=== PATIENT | female | born 1960 | race Caucasian/White ===

== ENCOUNTER 2023-06-29 14:41 | Emergency (ER) | payer OTHER, SELFPAY ==
[2023-06-29 14:50] VITALS: BP 117/81
[2023-06-29 16:10] VITALS: BP 128/78; BMI 25.8
--- NOTE | 2023-06-29 16:29 | EDRN ---
Pt states she has had sciatica for awhile and finished her prednisone script 2 weeks ago. Pain is more severe. Pt is taking 2 aleve in am and 1 at night. Pain is in L lower back radiating into L buttocks then down L lateral leg to L knee.
[2023-06-29 17:45] VITALS: BP 134/76
[2023-06-29] MEDS: NORCO 5/325 1 TABLET PO (17:45)
[2023-06-29] MEDS: TORADOL 15 MG IM (17:45)
--- NOTE | 2023-06-29 17:48 | ED.GENMED ---
History of Present Illness
General
Chief Complaint: Back Pain
Source: patient
Exam Limitations: none
Time Seen by Provider: 06/29/23 16:20
Nursing documentation reviewed up to this point in time: agreed with
Travel History
Have you had any contact with someone who has COVID-19?: No
Do you have any symptoms of coronavirus? Fever > 100 degrees, chills, cough, shortness of breath, sore throat, loss of taste or smell, muscle aches, or headache?: No
History of Present Illness
History of Present Illness:
Patient is a 62-year-old female with history of hyperlipidemia, hypothyroidism, GERD, pancreatic enzyme insufficiency presents for left-sided hip and back pain radiating into her left thigh, worse with changing position and weightbearing for the
last 2 weeks. She had no recent injury or heavy lifting. She had been on pancreatic enzymes which she was not tolerating well because of feeling very dehydrated and having a dry mouth etc. She stopped them about 2 weeks ago when this back pain
started. She is not sure if it is related. Patient saw her family doctor who thought she had sciatica and gave her methylprednisolone 4 mg tablets and told her to take 6 tabs on day [address] down to 1 tablet by decreasing 1 tablet a day.
Patient did that and had relief during while being on the prednisone but then immediately stopping got pain.
She says the pain is worse with weightbearing and feels like she is unable to weight-bear. She can put pressure on it but it hurts so she is limping. She has not had any weakness or numbness or tingling in the leg and no incontinence or fever.
She has no urinary tract infection symptoms.
She also has not had a bowel movement in the last 5 days and says that this is probably because of the pancreatic enzymes that she stopped. Patient has not tried anything for constipation. She has no abdominal distention or nausea or vomiting.
Past History
Past History
ED Past Medical History: GERD, Psychiatric and Other (Pancreatic enzyme insufficiency)
ED Past Surgical History: Other (Deviated septum repair)
Social History
Tobacco: Non-smoker
Alcohol: Occasional
Drug: None
Personal:
Living: with family
Review of Systems
Review of Systems
Allergies reviewed?: Yes
All Other Systems: Not applicable
Phy Exam
Physical Exam
Physical Exam:
GENERAL: Alert ,anxious,
EYE: pupils equal and reactive
NECK: Supple
ENT: o/p clr, mmm.
CARDIAC: mildly tachycardic 110s; no murmur .no edema
LUNGS: Clear breath sounds bilaterally, no acute respiratory distress, no wheezes/rales/rhonchi
ABDOMEN: Soft, without focal tenderness, no r/g, no cvat, normal bowel sounds
NEUROLOGICAL: Alert and oriented, no focal neuro deficits, 5/5 strength intact, senation intact grossly
SKIN: Warm and dry, skin intact.
MUSCULOSKELETAL: tender left SI joint, mild tende rleft paraspinal lumbar region
pos straigth leg raise into thigh at 30 degrees
no weakness/numbness
neg straight leg raise on the right
ambulates with a lump
some mild pain with hip internal rotation and flexion;
PSYCH: Normal and appropriate interaction.
Course
Orders/Labs/Results
Orders:
Orders
06/29/23 17:05
Hydrocodone 5/APAP 325 [[place] 5/325] 1 tablet PO NOW STA
Ketorolac [Toradol] 15 mg IM NOW STA
Abdomen Xray - 1 View [CR Abdomen - 1 View] Urgent
Comment:
Reason For Exam: constipation
Hip, Left 2-3 Views [CR Hip - LT w/wo Pel 2-3 Vw*] Urgent
Comment:
Reason For Exam: left posterior hip pain
Include a pelvis x-ray?: Yes
Lumbar Spine Complete, 4 View [CR Lumbar Spine Comp Min 4 Vw*] Urgent
Comment:
Reason For Exam: low back pain
06/29/23 18:04
Urinalysis Reflex To Culture Urgent
Date Specimen was Collected: 06/29/23
Time Specimen was Collected: 18:02
Urine Microscopic Reflex Cult Urgent
Urine Culture Urgent
NASIR Source: U
Specimen Description:
Date Specimen was Collected: 06/29/23
Time Specimen was Collected: 18:02
06/29/23 18:19
Prednisone [Deltasone] 50 mg PO NOW STA
Abnormal Lab Results
06/29/23
18:04
Leukocyte Esterase Rfl 2+ A
(Negative)
Urine WBC (Reflex) 11-15 A /HPF
(0-5)
Urine Bacteria (Reflex) Few A
(Negative)
Vital Signs
Initial and Last Documented VS:
Initial Vital Signs
Temp Pulse Resp BP Pulse Ox
99.3 F 118 18 117/81 96
06/29/23 14:50 06/29/23 14:50 06/29/23 14:50 06/29/23 14:50 06/29/23 14:50
Last Documented Vital Signs
Temp Pulse Resp BP Pulse Ox
99.3 F 82 16 101/57 94
06/29/23 14:50 06/29/23 19:50 06/29/23 19:50 06/29/23 19:50 06/29/23 19:50
MDM/Problems Addressed
Differential Diagnosis Includes:
sciatica lumbar radiculopathy, bursitits
MDM/Problems Addressed:
62 y/o F with left posterior hip/lower back pain without trauma x 2 weeks
radiation of pain into left thigh
no weakness/numbness/incontinence/fever
no urinary sypmtoms
pt has pain with weight bearing and has a limp
she has a slightly pos sraight leg raise on left with 30 degrees
she has mild SI joitn tendenress
i think her symptoms are most consistent with sciatica but could be lumbar raidculopathy
regardless her oral steroid taper was a low dose
she has h/o GERD but no PUD
will try a higher round of steroids
imaging ordered for screening purposes
and UA
if negative, d/c with prednisone and small course vicodin
she does have some constipation
so will prescribe stool osftener
*Critical Care Note
Total Time (30-74mins, 75-104mins- exclusive of procedures): Not Applicable
ED Attending Note
-
Portions of this chart may have been created with voice recognition software.� Occasional wrong word or��sound alike� substitutions may have occurred due to the inherent limitations of voice recognition software.
Discharge Plan
Departure
Patient Disposition: Home (Routine Discharge)
Date of Disposition: 06/29/23
Time of Disposition: 19:31
Patient with high blood pressure during this ER visit?: No
Condition: Fair
Covid-19: Not Applicable
Discharge Problem:
Sciatica, Constipation
Instructions: Sciatica (DC)
Prescriptions:
New
hydrocodone-acetaminophen 5-325 mg tablet
1 tab PO BID PRN (Reason: Pain) Qty: 10 0RF
docusate sodium [Colace] 100 mg capsule
100 mg PO BID Qty: 20 0RF
prednisone 20 mg tablet
20 mg PO BID 5 Days Qty: 10 0RF
No Action
levothyroxine [Synthroid] 88 MCG tablet
100 mcg PO DAILY
atorvastatin 10 MG tablet
20 mg PO DAILY
alprazolam 1 MG tablet
1 mg PO HSPRN PRN (Reason: anxiety)
omeprazole 40 MG capsule,delayed release(DR/EC)
40 mg PO DAILY
cevimeline 30 MG capsule
30 mg PO TID
pramipexole 0.125 MG tablet
0.125 mg PO DAILY
pramipexole 0.25 MG tablet
0.25 mg PO HS
montelukast 10 MG tablet
10 mg PO DAILY
mometasone 1 APPLIC cream
1 applic topical BID
bupropion HCl 150 MG tablet extended release 24 hr
150 mg PO DAILY
vilazodone [Viibryd] 40 MG tablet
40 mg PO DAILY
ondansetron HCl 4 mg tablet
4 mg PO Q8H PRN (Reason: nausea and vomiting) 5 Days Qty: 15 0RF
Referrals:
Sherley Vazquez PA-C [Family Provider] - Follow up in 2-3 days
Tuan Aguilera MD [Active] - Follow up in 5-7 days
Activity Restrictions/Additional Instructions:
YOUR BACK PAIN IS PROBABLY FROM SCIATICA
USE PRENDISONE 20 MG TWICE A DAY FOR 5 DAYS STARTING TOMORROW
USE TYLENOL 2 TIMES A DAY (2 REGULAR STRENGTH TABS) NEEDED FOR PAIN
FOR SEVERE PAIN YOU CAN USE VICODIN 1 TAB 3 TIMES A DAY FOR SEVERE PAIN NEEDED. THIS CAN LEAD TO CONSTIPATION, USE COLACE TWICE A DAY WHILE ON THIS MEDICATION
FOR YOUR CONSTIPATION YOU CAN TAKE A DOSE OF MIRALAX ONCE A DAY TO HELP YOU POOP
if you do this for 2 days and do not poop, you can use miralax twice a day for a few days.
YOUR XRAY SHOWS A LOT OF STOOL IN YOUR COLON.
RETURN FOR: SEVERE PAIN, LEG WEAKNESS/NUMBNESS, INCONTINENCE, ABDOMINAL PAIN, VOMITING OR ANY CONCERNS.
Interventions
Interventions:
*Risk Screen - Suicide Last Done: 06/29/23 16:10
*General Assessment Last Done: 06/29/23 16:10
*Neglect/Abuse Screening Last Done: 06/29/23 16:10
ED- Fall Risk Assessment Last Done: 06/29/23 16:10
*ED COVID-19 Vaccine History Last Done: 06/29/23 14:50
*Nursing Disposition Last Done: 06/29/23 19:50
ED-Musculoskeletal Assessment Last Done: 06/29/23 16:10
Discharge Date and Time
Discharge Date/Time: 06/29/23 19:50
--- NOTE | 2023-06-29 17:54 | EDRN ---
Pt limped to BR to attempt urine spec at this time.
--- NOTE | 2023-06-29 18:13 | EDRN ---
Urine spec obtained and sent.
[2023-06-29] MEDS: DELTASONE 50 MG PO (18:49)
[2023-06-29 19:00] LABS: Urine Albumin Trace (Neg - Trace); Urine Bilirubin Negative (Negative); Urine Character Slightly Cloudy (Clear); Urine Color Yellow; Urine Glucose Negative (Negative); Urine Ketone Negative (Negative); Urine Leukocyte 2+ (Negative); Urine Nitrite Negative (Negative); Urine Occult Blood Negative (Negative); Urine Urobilinogen Negative (Neg - 1+)
[2023-06-29 19:08] LABS: Urine Squamous Cell >30 /LPF (Few)
[2023-06-29 19:10] LABS: Urine Amorphous Seen; Urine Bacteria Few (Negative); Urine Red Blood Cell None Seen /HPF (0-2)
[2023-06-29 19:14] LABS: Urine Calcium Oxalate Crystals Present
[2023-06-29 19:50] VITALS: BP 101/57
== END 2023-06-29 19:50 | disposition home or self-care (01) ==
LOC: EMR 14:41
PROVIDERS: Physician Assistant; EMERGENCY PHYSICIAN Emergency Medicine; FAMILY PHYSICIAN Physician Assistant Medical
DX: K59.00 Constipation, unspecified (principal); M54.30 Sciatica, unspecified side; K21.9 Gastro-esophageal reflux disease without esophagitis; E03.9 Hypothyroidism, unspecified; E78.5 Hyperlipidemia, unspecified
CPT/HCPCS: 99283; 96372; 72110; 73502; 74018; 81003; 81015; 87086

== ENCOUNTER → 2023-07-12 07:00 | Outpatient (REF) | payer OTHER, SELFPAY | LOC: MRI 07:00 | PROVIDERS: ATTENDING PHYSICIAN Physician Assistant Surgical; FAMILY PHYSICIAN Physician Assistant Medical | DX: M54.16 Radiculopathy, lumbar region (principal) | CPT/HCPCS: 72148 ==

== ENCOUNTER → 2023-07-17 07:34 | Outpatient (REF) | payer OTHER, SELFPAY | LOC: RAD 07:34 | PROVIDERS: ATTENDING PHYSICIAN Internal Medicine; FAMILY PHYSICIAN Physician Assistant Medical | DX: R11.2 Nausea with vomiting, unspecified (principal) | CPT/HCPCS: 78264; A9541 ==

== ENCOUNTER → 2023-08-13 11:14 | Outpatient (REF) | payer OTHER, SELFPAY | LOC: MRI 3T 11:14 | PROVIDERS: ATTENDING PHYSICIAN Internal Medicine; FAMILY PHYSICIAN Physician Assistant Medical | DX: R11.0 Nausea (principal); K31.84 Gastroparesis; Z87.19 Personal history of other diseases of the digestive system; Z83.79 Family history of other diseases of the digestive system | CPT/HCPCS: 72197; 74183; A9575 ==

== ENCOUNTER 2023-09-16 06:12 | Inpatient (IN) | payer OTHER, SELFPAY ==
--- NOTE | 2023-09-09 09:07 | CM ---
Patient is scheduled for lumbar spine surgery on 09/16/23. Spoke with patient prior to surgery via telephone. Introduced role of the Orthopedic Navigator. Patient reports that she lives with her in a two story home. There is one step to enter
and a flight of steps to the second floor. There is a powder room on the first floor. She currently functions independently. She has a cane. She has never had VN services. PCP is Sherley Vazquez.
Discussed orthopedic program, post surgical plans and tentative plan for patient to return home when directed by surgeon. Patient is in agreement with tentative plan and will have support from her when she goes home.
Plan: Orthopedic Navigator will remain available to assist with the care of patient and will reassess discharge needs after surgery.
[2023-09-10 13:51] VITALS: BMI 25.2
[2023-09-10 14:11] LABS: Hematocrit 40.1 % (37.0-47.0); Hemoglobin 13.2 g/dL (12.0-16.0); Mean Corp Hgb Conc. 32.9 g/dL (33.0-37.0); Mean Corpuscular Hgb 28.6 pg (27.0-31.0); Mean Platelet Volume 9.8 fL (7.4-10.4); Platelet Count 436 10^3/uL (130-400); Red Blood Cell Count 4.61 10^6/uL (4.20-5.40); Red Cell Dist. Width 13.2 % (11.5-14.5); White Blood Cell Count 6.9 10^3/uL (4.8-10.8)
[2023-09-10 14:23] LABS: INR 0.99
[2023-09-10 15:03] LABS: ALT (SGPT) 16 U/L (0-35); AST (SGOT) 19 U/L (14-36); Alkaline Phosphatase 117 U/L (38-126); Blood Urea Nitrogen 12 mg/dl (7-17); Calcium 9.9 mg/dl (8.4-10.2); Carbon Dioxide 29 mmol/L (22-30); Chloride 102 mmol/L (98-107); Estimated Creatinine Clearance 59 ml/min; Glucose 81 mg/dl (70-99); Sodium 142 mmol/L (135-145); Total Bilirubin 0.4 mg/dl (0.2-1.3); Total Protein 6.6 g/dl (6.3-8.2); eGFR > 60.00
[2023-09-10 15:08] LABS: Potassium 4.2 mmol/L (3.5-5.1)
[2023-09-10 16:41] VITALS: BMI 25.2
[2023-09-16] VITALS (20 sets, daily range): BP systolic 82–118; BP diastolic 43–76
[2023-09-16] MEDS: SKELAXIN 800 MG PO (06:33)
[2023-09-16] MEDS: CELEBREX 200 MG PO (06:33)
[2023-09-16] MEDS: TYLENOL 1000 MG PO ×2 (06:34→17:01)
[2023-09-16] MEDS: NORMOSOL-R 1000 IV ×2 (06:55→15:07)
[2023-09-16 07:30] LABS: Urine Albumin Negative (Neg - Trace); Urine Bilirubin Negative (Negative); Urine Character Clear (Clear); Urine Color Yellow; Urine Glucose Negative (Negative); Urine Ketone Negative (Negative); Urine Leukocyte Trace (Negative); Urine Nitrite Negative (Negative); Urine Occult Blood Negative (Negative); Urine Urobilinogen 1+ (Neg - 1+)
[2023-09-16 07:47] LABS: Urine Bacteria Few (Negative); Urine Mucus Few; Urine Red Blood Cell 0-2 /HPF (0-2)
--- NOTE | 2023-09-16 13:05 | W.PN.UPDATE ---
Update Note
Progress Note Update
Orthopedic Surgery Post-op Note:
Patient is s/p L4-5 TLIF with decompression. Waking up in PACU, following commands. Moving feet. Sensation intact in BL LE. Drain in place (sutured in). She may get up as tolerated with assistance. PT/OT. DVT ppx with SCDs (no anticoagulation for 24
hrs post-op). Pain control. Zuniga to be removed within 24 hrs post-op.
[2023-09-16] MEDS: DILAUDID 0.5 MG IV (13:15)
[2023-09-16] MEDS: DILAUDID 0.25 MG IV ×2 (13:31→14:06)
--- NOTE | 2023-09-16 15:22 | PTCARENOTE ---
Pt arrived to [facility] [address] from PACU s/p L4-L5 lumbar fusion. Pt aquacel dressing C/D/I, hemovac drain in place draining sanguineous. Pt states mild pain. Pt does not have her back brace with her-she called her to bring to the hospital. Pt
oriented to call [place] and room, bed locked and in lowest position, call [place] within reach.
[2023-09-16] MEDS: ULTRAM 50 MG PO ×2 (15:49→19:32)
[2023-09-16] MEDS: ROXICODONE 10 MG PO (16:59)
[2023-09-16] MEDS: BENTYL PO ×2 (17:00→21:44)
[2023-09-16] MEDS: SYNTHROID 100 MCG PO (17:00)
[2023-09-16] MEDS: WELLBUTRIN XL (24 hour extended release) 150 MG PO (17:00)
[2023-09-16] MEDS: LIPITOR 20 MG PO (17:00)
[2023-09-16] MEDS: ANCEF 5 IV (17:01)
[2023-09-16] MEDS: NORMOSOL-R IV (18:08)
[2023-09-16] MEDS: SYMBICORT 80/4.5 MCG INHALER 2 PUFF INH (20:51)
[2023-09-16] MEDS: SEROQUEL 100 MG PO (21:28)
[2023-09-16] MEDS: MIRAPEX 0.5 MG PO (21:28)
[2023-09-16] MEDS: SINGULAIR 10 MG PO (21:28)
[2023-09-16] MEDS: PROTONIX 40 MG PO (21:28)
[2023-09-16] MEDS: DILAUDID 1 MG IV (21:29)
[2023-09-16] MEDS: ZADITOR 1 DROP OPHTH (21:34)
--- NOTE | 2023-09-16 21:41 | W.PN.ORTHO ---
Today's Communication / Plan
-
Monitor voiding.
Pull hemovac drain.
D/c later today if remaining clinically stable.
Assessment
.
Distal Motor Intact: Yes
Dressing:
Clean, dry and intact.
Assessment:
Lumbar stenosis with neurogenic claudication s/p L4-5 TLIF with decompression w/ Dr Robin 09/16/23
DVT prophylaxis - b/l SCDs/TEDs
+ Hemovac drain - output minimal overnight - d/c drain this AM
+ Langston - langston removed 0600 POD 1 w/ current voiding trial ongoing
- Will order Flomax prn
HTN - diet controlled - BPs overall stable
Asthma and SERA, noncompliant with device - O2 stable
- Resumed inhaler, montelukast
GERD - resumed PPI therapy
HLD
Chronic JUDGE
Pulmonary nodules
RLS
Hypothyroidism
Depression
Anxiety
Plan
.
Surgery / Date: L4-5 TLIF with decompression w/ Dr Robin 09/16/23
DVT Prophylaxis: Other (b/l SCDs/TEDs)
Activity:
Out of bed.
PT/OT
Discharge Plan: Home
Subjective
.
.:
Patient resting comfortably in her chair this AM.
Low back pain minimal w/ addition of IV Dilaudid overnight - will switch to oral Dilaudid upon d/c.
Denies any significant new complaints.
AM labs stable. Did well w/ both PT and OT.
Eager for potential d/c today.
Vital Signs and Labs
.
Vital Signs and Labs:
Lab Results
09/10/23 13:41
09/10/23 13:41
Temp Pulse Resp BP Pulse Ox
97.8 F 97 16 118/55 94
09/16/23 19:10 09/16/23 21:02 09/16/23 21:02 09/16/23 19:10 09/16/23 21:02
PT 13.0 Sec (11.4-14.6) 09/10/23 13:41
INR 0.99 09/10/23 13:41
Physical Exam
-
HEENT: No pallor, cyanosis, or jaundice. Throat clear.
NECK: Supple. No JVD.
RESPIRATORY: Lungs clear to auscultation.
CVS: S1, S2 normal. RRR.
ABDOMEN: Soft, non-tender. No distension.
EXTREMITIES: Strength equal, no calf pain with palpation/dorsiflexion. Calves soft.
MUSIC LIBRARY ASSISTANT: AOx3. No focal deficits. dialysis biomed technician grossly intact
--- NOTE | 2023-09-16 23:45 | OR.RPT ---
Operative Report
Operative Report
Orthopedic Surgery Operative Report
Date of Surgery: 09/16/23
PREOPERATIVE DIAGNOSES:
1. Lumbar spinal stenosis with radiculopathy, L4-L5
2. Lumbar spondylolisthesis, L4-L5
3. Lumbar back pain
POSTOPERATIVE DIAGNOSES:
1. Lumbar spinal stenosis with radiculopathy, L4-L5
2. Lumbar spondylolisthesis, L4-L5
3. Lumbar back pain
PROCEDURE PERFORMED:
1. L4-L5 transforaminal lumbar interbody fusion, L4-5 posterolateral fusion
2. L4-L5 posterior instrumentation
3. Placement of interbody cage at L4-L5
4. Use of autograft
5. Use of allograft
SURGEON: Angel Robin D.O.
PICKLING TANK OPERATOR: KHOI Shah, who helped with patient and limb positioning and retraction
ANESTHESIA: General endotracheal
COMPLICATIONS: None
ESTIMATED BLOOD LOSS: 100 cc
DRAINS: Hemovac
SPECIMEN: None
IMPLANTS:
All Globus implants
L4 screws- 5.5 x 45 (x2)
L5 screws- 5.5 x 40 (x2)
L4-L5 cage- 10 x 26, 9-16 expandable cage (sable)
Bilateral titanium rods
INDICATION FOR SURGERY: This patient has an ongoing history of low back pain and left lower extremity radiculopathy. Evaluation shows that she has the aforementioned diagnoses. She has failed extensive nonsurgical treatment. She has elected to
undergo the aforementioned surgical procedures. The risks, benefits, alternatives, and indications were discussed with the patient in detail. The risks include, but are not limited to bleeding requiring transfusion, infection, need for reoperation,
nerve or blood vessel damage, anesthetic risks, need for further surgery, continued pain, blood clots in the legs, heart attack, stroke, , dural tear, nerve root injury, graft migration, instrumentation failure, pseudoarthrosis, numbness,
weakness, paralysis. The patient understands the risks and elected to proceed. Informed consent was obtained preoperatively. The patient was optimized medically prior to surgery.
PROCEDURE IN DETAIL: The patient was identified in the preoperative holding area. The surgical site was appropriately marked. The patient was then brought to the operating room. General endotracheal anesthesia was achieved. The patient was
given routine preoperative intravenous antibiotics. The patient was turned to the prone position. Great care was taken to pad and protect all extremities and pressure points. The incision site was marked using fluoroscopy. The patient was prepped
and draped in the usual sterile manner. A preoperative surgical time-out was taken.
A standard midline approach to the lumbar spine was performed. The dissection was carried out to the spinal lamina. Dissection was then carried out laterally to expose the transverse processes of L4 and L5 bilaterally. The entry point for the
screws was identified. Bilateral L4 and L5 transverse processes were decorticated. Bilateral L4 and L5 pedicle screws were placed under fluoroscopic guidance as follows: The entry point for the first screw was identified anatomically. It was
entered using high-speed jarrod. A pedicle finder was carefully advanced. The position was confirmed on fluoroscopy. A ball-tipped probe was used to confirm the pathway. An appropriately sized tap was then used to tap the pedicle. A ball-tipped
probe reconfirmed the pathway. An appropriate size screw was then placed. The same procedure was performed for each screw. All screws had appropriate fixation. Fluoroscopy confirmed appropriate position of all instrumentation. Triggered spinal
cord monitoring EMG was also used to confirm appropriate position of all instrumentation.
We now proceeded with the decompression. Laminectomy was carried out. The hypertrophic ligamentum flavum was removed. A right partial facetectomy and a left complete facetectomy was carried out. The facet cysts were removed. Once the decompression
was completed, attention was turned to cage placement. The thecal sac and exiting nerve root were retracted to expose the disc space at L4-5 on the left. The disc space was then prepared under fluoroscopic guidance. The disc space was copiously
irrigated. Bone graft (autograft) was inserted into the disc space. A cage of adequate size was then inserted and expanded under fluoroscopic guidance. Additional flowable bone graft was then placed into the cage and disc space. Rods of appropriate
length were chosen and applied to the screws. Set screws were applied. Set screws were final tightened. The surgical site was copiously irrigated.
The posterolateral fusion from L4-L5 was performed next. Bone was decorticated posterolaterally and bone graft (autograft and allograft) was applied at this site (right L4-5 facet and bilateral intertransverse spaces).
The decompression site was reexamined and found to be widely patent. A deep drain was placed. The muscle was approximated using vicryl suture. Fascia was closed using #1 stratafix suture. Vancomycin powder was placed. The deep and superficial
subcutaneous tissues were closed using vicryl suture. Skin was approximated with monocryl suture. Dermabond was applied at the skin. Sterile dressing was applied. The drain was sutured in placed. The patient was turned to the supine position and
awoken from anesthesia. The patient tolerated the procedure well with no immediate complications.
Throughout the surgery, spinal cord monitoring including SSEPs and EMGs were used. All counts were correct at the end of the surgery.
Angel Robin D.O.
Orthopedic Surgery
[2023-09-17] MEDS: TYLENOL 1000 MG PO ×3 (00:28→12:05)
[2023-09-17] MEDS: ULTRAM 50 MG PO ×4 (00:28→12:05)
[2023-09-17] MEDS: ANCEF 5 IV (02:47)
[2023-09-17] MEDS: NORMOSOL-R 1000 IV (02:50)
[2023-09-17 03:20] VITALS: BP 98/50
[2023-09-17 05:08] LABS: Hematocrit 30.4 % (37.0-47.0)
[2023-09-17 05:09] LABS: Hemoglobin 10.4 g/dL (12.0-16.0)
[2023-09-17 05:25] LABS: Blood Urea Nitrogen 10 mg/dl (7-17); Calcium 8.9 mg/dl (8.4-10.2); Carbon Dioxide 31 mmol/L (22-30); Chloride 99 mmol/L (98-107); Estimated Creatinine Clearance 76 ml/min; Glucose 111 mg/dl (70-99); Potassium 4.2 mmol/L (3.5-5.1); Sodium 137 mmol/L (135-145); eGFR > 60.00
[2023-09-17] MEDS: DILAUDID 1 MG IV ×2 (05:31→11:18)
[2023-09-17] MEDS: SYNTHROID 100 MCG PO (06:20)
[2023-09-17 07:00] VITALS: BP 138/72
[2023-09-17] MEDS: BENTYL 10 MG PO (08:10)
[2023-09-17] MEDS: WELLBUTRIN XL (24 hour extended release) 150 MG PO (08:10)
--- NOTE | 2023-09-17 08:37 | CM ---
Addendum entered by Makenna Mckeon 09/17/23 10:59:
Patient did well in therapy. She has no concerns about going home. No discharge planning needs identified.
Original Note:
Reviewed chart and held rounds with PT, OT and RN. Patient had planned lumbar spine surgery with Dr. Robin on 09/15. Met with patient at bedside. Confirmed information previously obtained for assessment and discussed discharge plans. Patient
continues to plan to return home at discharge. She will have support from her when she goes home. Reviewed that she will work with PT/OT this morning and that discharge needs will depend on his functional status. However, no needs currently
identified.
Patient has a cane at home. Her obtained her brace yesterday form [facility].
Patient will use [facility] pharmacy for discharge prescriptions.
[2023-09-17] MEDS: SYMBICORT 80/4.5 MCG INHALER 2 PUFF INH (09:08)
[2023-09-17 09:47] VITALS: BP 125/84; BP 148/96; PULSE 109; O2SAT 98
[2023-09-17 10:13] VITALS: BP 140/89; PULSE 96; O2SAT 96
--- NOTE | 2023-09-17 10:47 | W.DS.TRANS ---
DC Summary - Chemist Assistant
-
Discharge Instructions:
Discharge Diagnosis/Procedures Lumbar stenosis with neurogenic claudication s/p
L4-5 TLIF with decompression w/ Dr Robin 09/15/
24
Diet Regular
Activity As tolerated,With Walker
Additional Activity No heavy lifting >10 lbs
Driving Restrictions Not until seen by your Dr
Bathing Restrictions OK to shower in 4 days.
Instructions:
Stand-Alone Forms: [facility] Lumbar Spine DC Instr
Changes to Home Medications: Yes
Discharge Medications:
DC Medications w/original date entered in [employer]
levothyroxine 88 mcg tablet (Synthroid) 100 mcg PO DAILY Thyroid 12/28/10
atorvastatin 10 mg tablet 20 mg PO DAILY High Cholesterol 10/30/20
bupropion HCl 150 mg 24 hr tablet, extended release 150 mg PO DAILY Depression 10/30/20
montelukast 10 mg tablet 10 mg PO HS Lung/Breathing Issues 10/30/20
omeprazole 40 mg capsule,delayed release 40 mg PO HS Gastrointestinal Issue 10/30/20
pramipexole 0.25 mg tablet 0.5 mg PO HS restless leg 10/30/20
vilazodone 40 mg tablet (Viibryd) 40 mg PO DAILY depression 10/30/20
dicyclomine 10 mg capsule 10 - 20 mg PO TID Gastrointestinal Issue 09/09/23
fluticasone furoate 100 mcg-vilanterol 25 mcg/dose inhalation powder (Breo Ellipta) 1 inh inhalation DAILY Lung/Breathing Issues 09/09/23
inulin 2 gram chewable tablet (Fiber Gummies) 4 g PO BID Supplement 09/09/23
multivitamin 1 tab PO DAILY Supplement 09/09/23
olopatadine 0.1 % eye drops 1 drp ophthalmic (eye) HS Eye Condition 09/09/23
quetiapine 50 mg tablet (Seroquel) 100 mg PO HS depression/anxiety 09/09/23
mupirocin 2 % topical ointment 1 applic topical BID infection prevention #1 tube 09/10/23
acetaminophen 500 mg tablet (Tylenol Extra Strength) 1,000 mg (2 x 500 mg) PO Q6H #30 tabs 09/17/23
alprazolam 1 mg tablet 1 mg PO HSPRN PRN anxiety #0 tabs 09/17/23
docusate sodium 100 mg capsule 100 mg PO BID #30 caps 09/17/23
hydromorphone 2 mg tablet 2 - 4 mg (1 - 2 x 2 mg) PO Q6H PRN moderate-severe pain #30 tabs 09/17/23
ondansetron HCl 4 mg tablet 4 mg PO Q6H PRN nausea and vomiting #30 tabs 09/17/23
sennosides 8.6 mg tablet (Senna Laxative) 17.2 mg (2 x 8.6 mg) PO BID #30 tabs 09/17/23
Home Medication Changes
acetaminophen 500 mg tablet (Tylenol Extra Strength) 1,000 mg (2 x 500 mg) PO Q6H #30 tabs 09/17/23
docusate sodium 100 mg capsule 100 mg PO BID #30 caps 09/17/23
hydromorphone 2 mg tablet 2 - 4 mg (1 - 2 x 2 mg) PO Q6H PRN moderate-severe pain #30 tabs 09/17/23
ondansetron HCl 4 mg tablet 4 mg PO Q6H PRN nausea and vomiting #30 tabs 09/17/23
sennosides 8.6 mg tablet (Senna Laxative) 17.2 mg (2 x 8.6 mg) PO BID #30 tabs 09/17/23
Pending Results: No
[2023-09-17 11:14] VITALS: BP 124/73
== END 2023-09-17 12:58 | disposition home or self-care (01) | DRG 460 ==
LOC: 2 SOUTH 06:12
PROVIDERS: Physician Assistant Medical; ADMITTING PHYSICIAN Orthopaedic Surgery; FAMILY PHYSICIAN Physician Assistant Medical
PROC: 0SG00AJ Fusion of Lumbar Vertebral Joint with Interbody Fusion Device, Posterior Approach, Anterior Column, Open Approach (ICD-10-PCS; 2023-09-16)
DX: M54.16 Radiculopathy, lumbar region (principal); M48.062 Spinal stenosis, lumbar region with neurogenic claudication; M43.16 Spondylolisthesis, lumbar region; I10 Essential (primary) hypertension; G47.33 Obstructive sleep apnea (adult) (pediatric); J45.909 Unspecified asthma, uncomplicated; K21.9 Gastro-esophageal reflux disease without esophagitis; E78.5 Hyperlipidemia, unspecified; E03.9 Hypothyroidism, unspecified; F32.A Depression, unspecified; F41.9 Anxiety disorder, unspecified; G25.81 Restless legs syndrome; Z91.199 Patient's noncompliance with other medical treatment and regimen due to unspecified reason
CPT/HCPCS: 36415; 72100; 76000; 80048; 80053; 81003; 81015; 85014; 85018; 85027; 85610; 87070; 93005; 94640; 97116; 97162; 97166; 97530; 97535

== ENCOUNTER 2023-10-23 14:19 | Outpatient (RCR) | payer OTHER, SELFPAY | END 2023-10-23 23:59 | disposition home or self-care (01) | LOC: RPT 14:19 | PROVIDERS: ATTENDING PHYSICIAN Orthopaedic Surgery; FAMILY PHYSICIAN Physician Assistant Medical | DX: Z47.89 Encounter for other orthopedic aftercare (principal); Z73.6 Limitation of activities due to disability; R26.2 Difficulty in walking, not elsewhere classified; M62.81 Muscle weakness (generalized) | CPT/HCPCS: 97110; 97112; 97162; 97530 ==

== ENCOUNTER 2023-11-16 13:48 | Emergency (ER) | payer OTHER, SELFPAY ==
[2023-11-16 13:52] VITALS: BP 147/91
--- NOTE | 2023-11-16 15:14 | ED.GENMED ---
Addendum entered and electronically signed by Bro Paulino DO 11/16/23 17:47:
Discussed with patient and spouse that the nodules are longer an issue than stated previously on pulmonary, I gave them a copy of the report to discuss with her PCP
Original Note:
History of Present Illness
General
Chief Complaint: Breathing Problem
Source: patient
Exam Limitations: none
Time Seen by Provider: 11/16/23 14:57
Nursing documentation reviewed up to this point in time: agreed with
Travel History
Have you had any contact with someone who has COVID-19?: No
Do you have any symptoms of coronavirus? Fever > 100 degrees, chills, cough, shortness of breath, sore throat, loss of taste or smell, muscle aches, or headache?: Yes
Symptoms:: SOB
History of Present Illness
History of Present Illness:
63-year-old female presents with sore throat loss of voice shortness of breath onset a week or so ago saw PCP given a Z-Talon, patient concerned that her heart rate went fast when she stood she has no chest pain, no wheezing, nondrinker non-smoker she
suffers from mental illness, thyroid, restless leg
Past History
Past History
ED Past Medical History: GERD, Psychiatric and Other (Pancreatic enzyme insufficiency)
ED Past Surgical History: Other (Deviated septum repair)
Social History
Tobacco: Non-smoker
Alcohol: Occasional
Drug: None
Personal:
Living: with family
Review of Systems
Review of Systems
All Other Systems: Not applicable
Constitutional: Denies fever or fatigue
EENT: Reports sore throat
Respiratory: Reports trouble breathing; Denies cough
Cardiac: Denies chest pain, diaphoresis or palpitations
ABD/GI: Reports no symptoms
: Reports no symptoms
Musculoskeletal: Reports no symptoms
Skin: Reports no symptoms
Neurological: Reports no symptoms
Endocrine: Reports no symptoms
Phy Exam
Physical Exam
Physical Exam:
Physical Exam
General: no apparent distress, not acutely ill
Neck: Posterior pharynx is clear voice is hoarse
Heart: Tachycardic 105 bpm
Lungs: no acute respiratory distress. clear bilaterally
Abdomen: Not tender
Neuro: alert and oriented. no focal neurological deficits
Skin: no rash
Psychiatric: well kept. interactive and cooperative
Extremities: no edema.
Scores
Heart Failure Risk
Heart Failure Risk Score: Not Applicable
Course
Orders/Labs/Results
Orders:
Orders
11/16/23 13:53
EKG [Electrocardiogram (*1)] Urgent
Reason for Study: Shortness of Breath
EKG- Treatment ONCE
CR Chest - 2 Views Urgent
Comment:
Reason For Exam: SOB
11/16/23 15:11
Cardiac Monitoring- Treatment ONCE
IV Insert/Care/Rem.- Treatment PRN
0.9% Sodium Chloride 1000 ml [Nss] 1,000 ml IV BOLUS
Dexamethasone Sod Phosphate [Decadron] 10 mg IV NOW STA
Ipratropium/Albuterol Sulfate [Duoneb] 3 ml INH R NOW STA
11/16/23 15:12
Soft Tissue, Neck [CR Soft Tissue Neck ] Urgent
Comment:
Reason For Exam: hoarse
11/16/23 15:30
Complete Blood Count/With Diff Urgent
Comprehensive Metabolic Panel Urgent
D-Dimer Urgent
11/16/23 16:03
CT Chest Pe Study Urgent
Comment:
Reason For Exam: tachy
Abnormal Lab Results
11/16/23
15:30
MCV 80.9 L fL
(81.0-99.0)
Eosinophils % 6.3 H %
(0-6)
D-Dimer 1.23 H ug/mlFEU
(0.00-0.50)
Glucose 102 H mg/dl
(70-99)
Alkaline Phosphatase 147 H U/L
(38-126)
11/16/23 15:30
11/16/23 15:30
Vital Signs
Initial and Last Documented VS:
Initial Vital Signs
Temp Pulse Resp BP Pulse Ox
98.8 F 110 17 147/91 96
11/16/23 13:52 11/16/23 13:52 11/16/23 13:52 11/16/23 13:52 11/16/23 13:52
Last Documented Vital Signs
Temp Pulse Resp BP Pulse Ox
98.8 F 89 17 147/91 96
11/16/23 13:52 11/16/23 16:26 11/16/23 13:52 11/16/23 13:52 11/16/23 16:26
MDM/Problems Addressed
Differential Diagnosis Includes:
Laryngitis pharyngitis URI doubt epiglottitis
MDM/Problems Addressed:
Shortness of breath, sore throat
Chronic conditions affecting care: Psychiatric illness
Acute Exacerbation and/or Progression of Chronic Illness: Psychiatric illness
*Radiology
Radiology exam reviewed: radiology read reviewed
*Pulse Oximetry
Patient hypoxic: no
*EKG
Interpreted by ED Provider?: Yes
Interpretation: normal
Comparison EKG: no comparison EKG present
Heart Rate: 78
Rate: normal
Rhythm: sinus
Ischemia: no ischemia
*Social Media Editor Interpretation
Rate: tachycardiac
Interpretation: abnormal
Heart Rate: 105
Rhythm: sinus
*Critical Care Note
Total Time (30-74mins, 75-104mins- exclusive of procedures): Not Applicable
Update Note
Update Note:
3:39 PM chest x-ray report noted EKG noted will check labs soft tissue lateral back, start on saline and some steroids
4:15 PM D-dimer noted patient feeling better after nebulizer heart rate actually decreased
5:[address] scan report reviewed, patient given a copy of the report
ED Attending Note
-
Portions of this chart may have been created with voice recognition software.� Occasional wrong word or��sound alike� substitutions may have occurred due to the inherent limitations of voice recognition software.
Discharge Plan
Departure
Patient Disposition: Home (Routine Discharge)
Date of Disposition: 11/16/23
Time of Disposition: 17:20
Patient with high blood pressure during this ER visit?: No
Condition: Good
Discharge Problem:
Laryngitis
Instructions: Laryngitis (DC)
Prescriptions:
New
albuterol sulfate 90 mcg/actuation HFA aerosol inhaler
2 puff inhalation Q6H PRN (Reason: shortness of breath or wheezing) Qty: 8.5 0RF
methylprednisolone [Medrol (Talon)] 4 mg tablets,dose pack
See Rx Instructions .ROUTE .COMPLEX Qty: 21 0RF
Rx Instructions:
for 6 days
No Action
levothyroxine [Synthroid] 88 MCG tablet
100 mcg PO DAILY
atorvastatin 10 MG tablet
20 mg PO DAILY
omeprazole 40 MG capsule,delayed release(DR/EC)
40 mg PO HS
pramipexole 0.25 MG tablet
0.5 mg PO HS
montelukast 10 MG tablet
10 mg PO HS
bupropion HCl 150 MG tablet extended release 24 hr
150 mg PO DAILY
vilazodone [Viibryd] 40 MG tablet
40 mg PO DAILY
multivitamin Tablet
1 tab PO DAILY
olopatadine 0.1 % Drops
1 drp OPHTHALMIC (EYE) HS
dicyclomine 10 mg Capsule
10 - 20 mg PO TID
Rx Instructions:
w/ food
quetiapine [Seroquel] 50 mg Tablet
100 mg PO HS
fluticasone furoate-vilanterol [Breo Ellipta] 100-25 mcg/dose Blister With Device
1 inh INHALATION DAILY
Fiber Gummies 2 gram Tablet,Chewable
4 g PO BID
mupirocin 2 % ointment
1 applic topical BID Qty: 1 0RF
docusate sodium 100 mg Capsule
100 mg PO BID Qty: 30 0RF
sennosides [Senna Laxative] 8.6 mg Tablet
17.2 mg PO BID Qty: 30 0RF
acetaminophen [Tylenol Extra Strength] 500 mg Tablet
1,000 mg PO Q6H Qty: 30 0RF
Rx Instructions:
DO NOT exceed >4000 mg daily.
hydromorphone 2 mg tablet
2 - 4 mg PO Q6H PRN (Reason: moderate-severe pain) Qty: 30 0RF
Rx Instructions:
1 tab for moderate pain, 2 if severe.
Dx lami
ondansetron HCl 4 mg tablet
4 mg PO Q6H PRN (Reason: nausea and vomiting) Qty: 30 0RF
alprazolam 1 MG tablet
1 mg PO HSPRN PRN (Reason: anxiety) Qty: 0 0RF
Rx Instructions:
Home medication.
Caution with Dilaudid - can cause drowsiness.
Take only as directed
Referrals:
Sherley Vazquez PA-C [Family Provider] - Next open appointment (Follow-up with your primary care provider, your CT scan shows some abnormalities and radiologist are recommending get a repeat CAT scan in a few months)
Activity Restrictions/Additional Instructions:
Follow-up with your primary care provider, radiologist are recommending you get a CT scan in a few months
Interventions
Interventions:
*General Assessment Last Done: 11/16/23 15:00
*Neglect/Abuse Screening Last Done: 11/16/23 15:00
ED- Fall Risk Assessment Last Done: 11/16/23 15:00
*ED COVID-19 Vaccine History Last Done: 11/16/23 15:00
ED- Cardiac Assessment Last Done: 11/16/23 15:00
ED- Pulmonary Assessment Last Done: 11/16/23 15:00
Discharge Date and Time
Print Language: YAKUT
[2023-11-16 15:30] VITALS: BMI 25.1
[2023-11-16] MEDS: NSS 1000 IV (15:31)
[2023-11-16] MEDS: DECADRON 10 MG IV (15:35)
[2023-11-16] MEDS: DUONEB 3 ML INH (15:35)
[2023-11-16 15:43] LABS: % Basophils 0.8 % (0-2); % Eosinophils 6.3 % (0-6); % Immature Granulocytes 0.2 % (0-0.5); % Lymphocytes 21.4 % (20.5-51.1); % Monocytes 6.5 % (1.7-9.3); % Neutrophils 64.8 % (42.2-75.2); Absolute Basophils 0.1 10^3/uL (0-0.2); Absolute Eosinophils 0.5 10^3/uL (0-0.7); Absolute Lymphocytes 1.8 10^3/uL (1.2-3.4); Absolute Monocytes 0.6 10^3/uL (0.1-0.6); Absolute Neutrophils 5.5 10^3/uL (1.4-6.5); Hematocrit 38.1 % (37.0-47.0); Hemoglobin 13.1 g/dL (12.0-16.0); Mean Corp Hgb Conc. 34.4 g/dL (33.0-37.0); Mean Corpuscular Hgb 27.8 pg (27.0-31.0); Mean Corpuscular Volume 80.9 fL (81.0-99.0); Mean Platelet Volume 9.2 fL (7.4-10.4); Nucleated Red Blood Cells % 0 %; Platelet Count 326 10^3/uL (130-400); Red Blood Cell Count 4.71 10^6/uL (4.20-5.40); Red Cell Dist. Width 13.5 % (11.5-14.5); White Blood Cell Count 8.4 10^3/uL (4.8-10.8)
[2023-11-16 15:57] LABS: D-Dimer 1.23 ug/mlFEU (0.00-0.50)
[2023-11-16 16:14] LABS: ALT (SGPT) 19 U/L (0-35); AST (SGOT) 30 U/L (14-36); Albumin 3.9 g/dl (3.5-5.0); Alkaline Phosphatase 147 U/L (38-126); Blood Urea Nitrogen 8 mg/dl (7-17); Calcium 9.4 mg/dl (8.4-10.2); Carbon Dioxide 28 mmol/L (22-30); Chloride 106 mmol/L (98-107); Estimated Creatinine Clearance 67 ml/min; Glucose 102 mg/dl (70-99); Potassium 4.4 mmol/L (3.5-5.1); Sodium 141 mmol/L (135-145); Total Bilirubin 0.4 mg/dl (0.2-1.3); Total Protein 6.6 g/dl (6.3-8.2); eGFR > 60.00
[2023-11-16 17:38] VITALS: BP 119/60
== END 2023-11-16 17:45 | disposition home or self-care (01) ==
LOC: EMR 13:48
PROVIDERS: EMERGENCY PHYSICIAN Emergency Medicine; FAMILY PHYSICIAN Physician Assistant Medical
DX: J04.0 Acute laryngitis (principal)
CPT/HCPCS: 99285; 96374; 96361; 94640; 70360; 71046; 71275; 80053; 85025; 85379; 93005; Q9967

== ENCOUNTER → 2024-04-07 04:00 | Outpatient (REF) | payer OTHER, SELFPAY | LOC: DHSLP 04:00 | PROVIDERS: ATTENDING PHYSICIAN Internal Medicine; FAMILY PHYSICIAN Physician Assistant Medical | DX: G47.19 Other hypersomnia (principal); R06.83 Snoring | CPT/HCPCS: 95800 ==

== ENCOUNTER 2024-05-07 14:51 | Inpatient (IN) | payer OTHER, SELFPAY ==
[2024-05-07] VITALS (9 sets, daily range): BP systolic 111–145; BP diastolic 66–92; BMI 23.4; BMI 23.6
--- NOTE | 2024-05-07 09:04 | ED.GENMED ---
History of Present Illness
General
Chief Complaint: Abdominal Symptoms
Source: patient
Exam Limitations: none
Time Seen by Provider: 05/07/24 09:04
Nursing documentation reviewed up to this point in time: agreed with
History of Present Illness
History of Present Illness:
Patient is a 63-year-old female with history of chronic GI issues, pancreatic insufficiency who presents to the ER for evaluation. She has a history of previous history of chronic constipation and diarrhea and chronic vomiting. She reports
recently she has had diarrhea which is not new for her. In addition she has chronic vomiting mostly at night. She reports however for the past 1 week she has been very constipated. She used an enema Friday and Friday and has been using colic
Milk of Magnesia last night started with multiple episodes of diarrhea throughout the night which was liquid brown in color and then became bloody. She also reports her urine is very dark. She complains of a lot of lower abdominal cramping.
Past History
Past History
ED Past Medical History: GERD, Psychiatric and Other (Pancreatic enzyme insufficiency)
ED Past Surgical History: Other (Deviated septum repair)
Social History
Tobacco: Non-smoker
Alcohol: Occasional
Drug: None
Personal:
Living: with family
Review of Systems
Review of Systems
Allergies reviewed?: Yes
All Other Systems: ROS reviewed and negative except as documented in HPI and ROS
Constitutional: Reports no symptoms; Denies fever, fatigue or chills
Respiratory: Reports no symptoms
Cardiac: Reports no symptoms
ABD/GI: Reports abdominal pain, nausea, vomiting, diarrhea and bloody stools
: Reports dark urine
Musculoskeletal: Reports no symptoms
Skin: Reports other (noticed rash to arms past several days )
Neurological: Reports no symptoms
Hematologic/Lymphatic: Reports no symptoms
Psychiatric: Reports no symptoms
Phy Exam
General Physical Exam
General Presentation: no apparent distress
General age: appears stated age
General Skin: warm and dry
General Habitus: normal
General Hydration: dry mucous membranes
Cardiovascular Exam
Cardiovascular Exam: tachycardia
Pulmonary Exam
Pulmonary Exam: lungs clear and no respiratory distress
Gastrointestinal Exam
Gastrointestinal Exam: soft and other (Nonspecific abdominal tenderness patient presented with bloody stool in specimen cup)
Neurological Exam
Neurological Exam: alert and oriented x3
Musculoskeletal Exam
Musculoskeletal Exam: full ROM
Skin Exam
Skin Exam: normal color and warm/dry
Psychiatric Exam
Psychiatric Exam: normal mood/affect
Course
Orders/Labs/Results
Orders:
Orders
05/07/24 08:20
Electrocardiogram (*1) Urgent
Reason for Study: Tachycardia
EKG- Treatment ONCE
05/07/24 09:06
Complete Blood Count/With Diff Urgent
Comprehensive Metabolic Panel Urgent
Lipase Urgent
05/07/24 09:29
0.9% Sodium Chloride 1000 ml [Nss] 1,000 ml IV BOLUS
Dicyclomine HCl [Bentyl] 20 mg IM NOW STA
Ondansetron Injectable [Zofran] 4 mg IV NOW STA
05/07/24 09:33
CT Abd/pel W Iv And Oral Contr Urgent
Comment:
Reason For Exam: abd pain/chronic constipation/diarrhea
Iohexol [Omnipaque] See Protocol PO NOW STA
05/07/24 09:48
UA Reflex to Culture [Urinalysis Reflex To Culture] Urgent
Date Specimen was Collected: 05/07/24
Time Specimen was Collected: 09:47
Urine Microscopic Reflex Cult Urgent
C DIFF [C difficile Antigen & Toxins] Urgent
NASIR Source: Feces/Stool
Specimen Description:
Date Specimen was Collected: 05/07/24
Time Specimen was Collected: 09:47
Stool Culture Urgent
NASIR Source: Feces/Stool
Specimen Description:
Date Specimen was Collected: 05/07/24
Time Specimen was Collected: 09:47
Urine Culture Urgent
NASIR Source: U
Specimen Description:
Date Specimen was Collected: 05/07/24
Time Specimen was Collected: :47
05/07/24 09:58
Promethazine [Phenergan] 25 mg IM NOW STA
05/07/24 10:09
Trimethobenzamide [Tigan] 200 mg IM NOW STA
05/07/24 10:56
Morphine Sulfate 4 mg IV NOW STA
05/07/24 11:14
0.9% Sodium Chloride 1000 ml [Nss] 1,000 ml IV BOLUS
05/07/24 13:49
Morphine Sulfate 4 mg IV NOW STA
Abnormal Lab Results
05/07/24 05/07/24
09:06 09:48
WBC 16.1 H 10^3/uL
(4.8-10.8)
RBC 5.61 H 10^6/uL
(4.20-5.40)
Hct 47.8 H %
(37.0-47.0)
MCHC 32.8 L g/dL
(33.0-37.0)
Plt Count 490 H 10^3/uL
(130-400)
Abs Immat Gran (auto) 0.1 H 10^3/uL
(0-0.05)
Absolute Neuts (auto) 12.2 H 10^3/uL
(1.4-6.5)
Absolute Monos (auto) 1.2 H 10^3/uL
(0.1-0.6)
Neutrophils % 76.1 H %
(42.2-75.2)
Lymphocytes % 12.3 L %
(20.5-51.1)
Creatinine 1.1 H mg/dL
(0.6-1.0)
Glucose 106 H mg/dl
(70-99)
Calcium 10.3 H mg/dl
(8.4-10.2)
Alkaline Phosphatase 191 H U/L
(38-126)
Urine Ketones Trace A
(Negative)
Urine Nitrite (Reflex) Positive A
(Negative)
Urine Bilirubin 1+ A
(Negative)
Urine Urobilinogen 2+ A
(Neg - 1+)
Leukocyte Esterase Rfl Trace A
(Negative)
Urine Bacteria (Reflex) Moderate A
(Negative)
05/07/24 09:06
05/07/24 09:06
Vital Signs
Initial and Last Documented VS:
Initial Vital Signs
Temp Pulse Resp BP Pulse Ox
97.9 F 141 24 145/90 98
05/07/24 08:16 05/07/24 08:16 05/07/24 08:16 05/07/24 08:16 05/07/24 08:16
Last Documented Vital Signs
Temp Pulse Resp BP Pulse Ox
97.9 F 106 16 140/88 98
05/07/24 08:16 05/07/24 12:30 05/07/24 12:30 05/07/24 12:00 05/07/24 08:16
Rig Site Engineer consulted with Physician
Rig Site Engineer consulted with physician?: Yes
Name of Physician Consulted: keara
MDM/Problems Addressed
Differential Diagnosis Includes:
not limited to:
Colitis diverticulitis rectal bleeding dehydration bowel obstruction
MDM/Problems Addressed:
Patient is a 63-year-old female with chronic intermittent diarrhea and constipation nausea vomiting presents with diarrhea/bloody diarrhea with dark urine throughout the night. Patient arrives very uncomfortable very nauseous tachycardic
dehydrated. Patient received fluids as well as Phenergan. Patient's QTc is elevated here in the ER. She is on antidepressant medication. I did hold off on Zofran because of this. On exam she has nonspecific tenderness. Patient did bring a
stool specimen which was bloody. This was sent for culture and positive for C. difficile. She is afebrile her white count is 16,000 and her platelets are 490 . She does appear dry on exam her creatinine is 1.1 however normal BUN normal LFTs were
normal. Patient denies any UTI symptoms no obvious UTI on UA. CAT scan does show proctocolitis fluid in the ascending and proximal transverse colon. Will admit for continued evaluation. Patient requiring pain medication. will give first dose of
Vanco.
Chronic conditions affecting care:
Chronic nausea vomiting/diarrhea constipation
*Critical Care Note
Total Time (30-74mins, 75-104mins- exclusive of procedures): Not Applicable
ED Attending Note
-
Portions of this chart may have been created with voice recognition software.� Occasional wrong word or��sound alike� substitutions may have occurred due to the inherent limitations of voice recognition software.
Discharge Plan
Departure
Patient Disposition: Admit
Date of Disposition: 05/07/24
Time of Disposition: 14:13
Admit to: Med/Surg
Admit to doctor: hospitalist
Presentation/result/management discussed w/ accepting MD/DO: Hospitalist
Patient with high blood pressure during this ER visit?: Yes
Condition: Fair
Covid-19: Not Applicable
Discharge Problem:
C. difficile diarrhea, Proctocolitis, prolonged qt
Prescriptions:
No Action
levothyroxine [Synthroid] 88 MCG tablet
100 mcg PO DAILY
atorvastatin 10 MG tablet
20 mg PO DAILY
omeprazole 40 MG capsule,delayed release(DR/EC)
40 mg PO HS
pramipexole 0.25 MG tablet
0.5 mg PO HS
montelukast 10 MG tablet
10 mg PO HS
bupropion HCl 150 MG tablet extended release 24 hr
150 mg PO DAILY
multivitamin Tablet
1 tab PO DAILY
olopatadine 0.1 % Drops
1 drp BOTH EYES HS
quetiapine [Seroquel] 50 mg Tablet
100 mg PO HS
alprazolam 1 MG tablet
1 mg PO HSPRN PRN (Reason: anxiety) Qty: 0 0RF
magnesium hydroxide [Milk of Magnesia] 400 mg/5 mL Suspension
2,400 mg PO DAILYPRN PRN (Reason: constipation)
Fleet Enema 19-7 gram/118 mL Enema
118 ml [place] DAILYPRN PRN (Reason: constipation)
bisacodyl [Dulcolax (bisacodyl)] 5 mg Tablet,Delayed Release (Dr/Ec)
15 mg PO DAILYPRN PRN (Reason: constipation)
omeprazole 20 mg Tablet,Delayed Release (Dr/Ec)
20 mg PO DAILY
fluticasone furoate-vilanterol [Breo Ellipta] 200-25 mcg/dose Blister With Device
1 inh INHALATION R DAILY
sennosides [Senna Laxative] 8.6 mg tablet
17.2 mg PO DAILYPRN PRN (Reason: constipation)
docusate sodium 100 mg capsule
100 mg PO BIDPRN PRN (Reason: constipation)
mirtazapine 15 mg Tablet
15 mg PO HS
famotidine [Pepcid] 40 mg Tablet
40 mg PO HS
Referrals:
Sherley Vazquez PA-C [Family Provider] -
Interventions
Interventions:
*Risk Screen - Suicide Last Done: 05/07/24 08:20
*General Assessment Last Done: 05/07/24 09:13
*Neglect/Abuse Screening Last Done: 05/07/24 08:20
ED- Fall Risk Assessment Last Done: 05/07/24 09:13
*ED COVID-19 Vaccine History Last Done: 05/07/24 09:13
LX-Gllour-Eyrhnbzjyi Assessment Last Done: 05/07/24 09:13
Discharge Date and Time
Print Language: CHINESE
[2024-05-07 09:16] LABS: % Basophils 0.6 % (0-2); % Eosinophils 3.2 % (0-6); % Immature Granulocytes 0.5 % (0-0.5); % Lymphocytes 12.3 % (20.5-51.1); % Monocytes 7.3 % (1.7-9.3); % Neutrophils 76.1 % (42.2-75.2); Absolute Basophils 0.1 10^3/uL (0-0.2); Absolute Eosinophils 0.5 10^3/uL (0-0.7); Absolute Immature Granulocytes 0.1 10^3/uL (0-0.05); Absolute Monocytes 1.2 10^3/uL (0.1-0.6); Absolute Neutrophils 12.2 10^3/uL (1.4-6.5); Hematocrit 47.8 % (37.0-47.0); Hemoglobin 15.7 g/dL (12.0-16.0); Mean Corp Hgb Conc. 32.8 g/dL (33.0-37.0); Mean Corpuscular Volume 85.2 fL (81.0-99.0); Mean Platelet Volume 9.9 fL (7.4-10.4); Nucleated Red Blood Cells % 0 %; Platelet Count 490 10^3/uL (130-400); Red Blood Cell Count 5.61 10^6/uL (4.20-5.40); Red Cell Dist. Width 14.2 % (11.5-14.5); White Blood Cell Count 16.1 10^3/uL (4.8-10.8)
[2024-05-07 09:38] LABS: AST (SGOT) 27 U/L (14-36); Alkaline Phosphatase 191 U/L (38-126); Blood Urea Nitrogen 12 mg/dl (7-17); Calcium 10.3 mg/dl (8.4-10.2); Carbon Dioxide 22 mmol/L (22-30); Chloride 101 mmol/L (98-107); Estimated Creatinine Clearance 49 ml/min; Glucose 106 mg/dl (70-99); Lipase 71 U/L (23-300); Potassium 4.2 mmol/L (3.5-5.1); Sodium 142 mmol/L (135-145); Total Bilirubin 1.2 mg/dl (0.2-1.3); Total Protein 7.9 g/dl (6.3-8.2); eGFR 56.46
[2024-05-07] MEDS: NSS 1000 IV ×2 (09:44→11:53)
[2024-05-07] MEDS: BENTYL 20 MG IM (09:44)
[2024-05-07 09:50] LABS: ALT (SGPT) 32 U/L (0-35)
[2024-05-07 10:02] LABS: Urine Albumin Trace (Neg - Trace); Urine Bilirubin 1+ (Negative); Urine Character Clear (Clear); Urine Color Amber; Urine Glucose Negative (Negative); Urine Ketone Trace (Negative); Urine Leukocyte Trace (Negative); Urine Nitrite Positive (Negative); Urine Occult Blood Negative (Negative); Urine Specific Gravity 1.025 (<1.030); Urine Urobilinogen 2+ (Neg - 1+)
[2024-05-07] MEDS: TIGAN 200 MG IM ×2 (10:19→20:42)
[2024-05-07 10:20] LABS: Urine Mucus Many
[2024-05-07 10:23] LABS: Urine Squamous Cell 16-20 /LPF (Few)
[2024-05-07 10:26] LABS: Urine Hyaline Cast >15 /LPF (0-2); Urine Uric Acid Crystals Seen
[2024-05-07 10:27] LABS: Urine Red Blood Cell 0-2 /HPF (0-2); Urine White Cell 0-2 /HPF (0-5)
[2024-05-07 10:28] LABS: Urine Bacteria Moderate (Negative)
[2024-05-07] MEDS: OMNIPAQUE 50 ML PO (10:56)
[2024-05-07] MEDS: MORPHINE SULFATE 4 MG IV ×2 (11:03→14:00)
--- NOTE | 2024-05-07 14:18 | HPS.HSE ---
Family Physician
-
Family Physician: Sherley Vazquez
Chief Complaint
-
Diarrhea with abdominal pain for one day duration
History of Present Illness
63 years old female admitted to the hospital with 1 day duration of nausea, diarrhea and abdominal pain. Patient has history of chronic constipation. She was severely constipated and lasted few days and was taking laxative treatments. She started
to have liquid brown stools then became bloody with lower abdominal pain and cramping. She complained of nausea and vomiting but both can be chronic at times. She presented to the hospital and was positive for C. difficile infection. Patient
denied recent intake of antibiotics. She denied history of CHF in the past. Scan of the abdomen and pelvis was suggestive of proctocolitis. She had leukocytosis but no fevers.
Medical History
Past Medical History
Past Medical History: Reports Other (Depression, restless leg syndrome, history of nausea and vomiting, hyperlipidemia, hypothyroidism, GERD, dermatitis, lumbar spinal stenosis with radiculopathy.)
Past Surgical History: Reports Other (No recent major surgery)
Social History
Tobacco: Non-smoker
Alcohol: None
Drug: None
Personal:
Living: With Family
Employment: Employed (attraction worker)
Family History
Family History: Other (Her daughter has a Crohn's disease)
Allergies / Home Medications
Allergies reflects when Allergies were last updated in [facility].
Home Medications with original date entered in [facility]
Allergy/Medication List:
Allergies
Allergy/AdvReac Type Severity Reaction Status Date / Time
erythromycin base Allergy stomach Verified 11/16/23 13:52
cramps
gluten Allergy GI s/s Verified 11/16/23 13:52
Milk Containing Products Allergy GI s/s Verified 11/16/23 13:52
(Dairy)
amylase [From Zenpep] AdvReac Severe Verified 11/16/23 13:52
dehydration
gabapentin AdvReac Severe dry Verified 11/16/23 13:52
mouth
lipase [From Zenpep] AdvReac Severe Verified 11/16/23 13:52
dehydration
pregabalin [From Lyrica] AdvReac Severe dry Verified 11/16/23 13:52
mouth
protease [From Zenpep] AdvReac Severe Verified 11/16/23 13:52
dehydration
Home Medications
levothyroxine 88 mcg tablet (Synthroid) 100 mcg PO DAILY Thyroid 12/28/10
atorvastatin 10 mg tablet 20 mg PO DAILY High Cholesterol 10/30/20
bupropion HCl 150 mg 24 hr tablet, extended release 150 mg PO DAILY Depression 10/30/20
montelukast 10 mg tablet 10 mg PO HS Lung/Breathing Issues 10/30/20
omeprazole 40 mg capsule,delayed release 40 mg PO HS Gastrointestinal Issue 10/30/20
pramipexole 0.25 mg tablet 0.5 mg PO HS restless leg 10/30/20
multivitamin 1 tab PO DAILY Supplement 09/09/23
olopatadine 0.1 % eye drops 1 drp BOTH EYES HS Eye Condition 09/09/23
quetiapine 50 mg tablet (Seroquel) 100 mg PO HS depression/anxiety 09/09/23
alprazolam 1 mg tablet 1 mg PO HSPRN PRN anxiety #0 tabs 09/17/23
bisacodyl 5 mg tablet,delayed release (Dulcolax (bisacodyl)) 15 mg PO DAILYPRN PRN constipation 05/07/24
docusate sodium 100 mg capsule 100 mg PO BIDPRN PRN constipation 05/07/24
famotidine 40 mg tablet (Pepcid) 40 mg PO HS 05/07/24
fluticasone furoate 200 mcg-vilanterol 25 mcg/dose inhalation powder (Breo Ellipta) 1 inh inhalation R DAILY 05/07/24
magnesium hydroxide 400 mg/5 mL oral suspension (Milk of Magnesia) 2,400 mg PO DAILYPRN PRN constipation 05/07/24
mirtazapine 15 mg tablet 15 mg PO HS 05/07/24
omeprazole 20 mg tablet,delayed release 20 mg PO DAILY 05/07/24
sennosides 8.6 mg tablet (Senna Laxative) 17.2 mg PO DAILYPRN PRN constipation 05/07/24
sodium phosphates 19 gram-7 gram/118 mL enema (Fleet Enema) 118 ml [place] DAILYPRN PRN constipation 05/07/24
Review of Systems
-
History Source: Patient
A 12 point ROS was completed and negative except as noted: Yes
Constitutional: Denies Fever or Chills
EENT: Denies Sore Throat
Respiratory: Denies Cough
Cardiac: Denies Chest Pain
Abdomen/GI: Reports Abdominal Pain, Nausea, Vomiting and Bloody Stools
: Denies Dysuria or Frequency
Musculoskeletal: Denies Joint Pain or Joint Swelling
Skin: Denies Rash
Neurological: Denies Headache
Endocrine: Denies Temp Intolerance
Psych: Denies Panic Disorder
Physical Exam
Vital Signs
Vital Signs
Temp Pulse Resp BP Pulse Ox
97.9 F 106 16 140/88 98
05/07/24 08:16 05/07/24 12:30 05/07/24 12:30 05/07/24 12:00 05/07/24 08:16
Physical Exam
General: Pain; No Respiratory Distress
HEENT: Atraumatic
Respiratory: No Wheezes
Cardiac: No Tachycardia
GI: Soft, Non Distended and Tender
Genito-urinary: No Zuniga
Musculoskeletal: No Clubbing and No Cyanosis
Skin: Warm and Dry; No Jaundice
Neuro: AO x 3 and Nonfocal/grossly intact
Psych: Calm and Intact Judgment/Insight
Laboratory Results
-
05/07/24 09:06
05/07/24 09:06
Laboratory Results
Total Bilirubin 1.2 mg/dl (0.2-1.3) 05/07/24 09:06
AST 27 U/L (14-36) 05/07/24 09:06
ALT 32 U/L (0-35) 05/07/24 09:06
Alkaline Phosphatase 191 U/L (38-126) H 05/07/24 09:06
Lipase 71 U/L (23-300) 05/07/24 09:06
Impression/Plan
-
63 female presented with acute diarrhea with abdominal pain due to C diff colitis
# Acute C Diff Colitis
CT suggestive of proctocolitis
Admit to hospital
Pt was clinically dehydrated
Isolation precautions
Start IV fluid
IV Dilaudid PRN
Oral Vancomycin QID
Anti- nausea medication PRN
Will monitor closely, abdomen is tender but no guarding and not distended. No fever. Patient does not look toxic.
Monitor WBC count and Temperature curve.
Consult GI & ID, help appreciated.
# GERD, patient has history of GI problems. She follows with GI office. She reports history of chronic constipation. Will hold PPI while active C. difficile infection.
# Mild BRODY due to dehydration
Will give IVF
CT showed no hydronephrosis
Monitor BMP
# Hypercalcemia due to dehydration
# DVT prophylaxis, hold pharmacological agents due to bloody diarrhea.
# History fo anxiety/ Migraine
Mood is pleasant, continue with home regimen.
# Restless leg syndrome
c/w Pramipexole.
# Hypothyroidism
No changers intended.
Total time spent to see the patient, examine the patient, review data and lab results, discuss treatment plan with the patient, ER doctor, nursing staff around 75 minutes
[2024-05-07] MEDS: DILAUDID 0.5 MG IV (14:22)
[2024-05-07] MEDS: FIRVANQ 125 MG PO ×2 (14:58→18:21)
[2024-05-07] MEDS: DILAUDID 1 MG IV ×2 (16:22→20:49)
[2024-05-07] MEDS: D5/0.9% SODIUM CHLORIDE 1000 IV ×2 (16:25→21:43)
--- NOTE | 2024-05-07 17:49 | CON.GI ---
Consultation
-
Date/Time Consultation Requested: 05/07/2024, 3pm
Date/Time Consultation Performed: 05/07/2024, 5pm
Requesting Provider: Dr. Marlow
Performing Provider: Dr. Gabriel
Reason for Consultation: c diff
Medical History
Chief Complaint / HPI
Chief Complaint: diarrhea, n/v, weakness
History of Present Illness:
Patient is a 63-year-old female past medical history as below who is known to Dr. Ibarra for multiple GI issues and has undergone extensive workup in the past. At her last office appointment in December, she states that dicyclomine has been helpful.
She had some chronic laryngitis and she was on Carafate and omeprazole for that. She called our office with nausea and vomiting and at that time they put her on Remeron. She checked with her psychiatrist and she stopped her Viibyrd which in
combination can cause many side effects. She also was recommended to see Dr. Bourgeois from [place]. Patient also states she was constipated for the last week I do not see any phone calls regarding that. She states she took multiple [id number]
medications for the constipation. Then last night she had copious diarrhea. C. difficile was checked and was positive. Patient denies any recent antibiotics, sick contacts, travel although her daughter has been in and out of the hospital with
issues tolerating antibiotics and does have underlying Crohn's disease.
The nausea and vomiting has been present for the last month and has been occurring daily. In addition, she felt some shakiness although no fever or chills. She also has some body aches and abdominal pain. As stated above, she had a week of
constipation which she took milk of magnesia, Colace, senna, Dulcolax in order to have a bowel movement which led to the diarrhea. At the end of the diarrhea, she saw some blood.
Reviewing her prior workup, she did have a gastric emptying study in July 2023 which does show markedly prolonged gastric emptying suspicious for gastroparesis. She also had an MR enterography in August 2023 which was normal. She underwent a
colonoscopy in April 2023 which was found to have small rectal tubular adenoma and random biopsies were negative for microscopic colitis and an upper endoscopy at the same time which showed gastritis, no celiac, normal exam.
She did have a CT scan done here which shows mild mucosal hyperenhancement within the rectum and colon suggestive of proctocolitis. Her white count is elevated at 16.1.
Past Medical History
Past Medical History: GERD, Hypercholesterolemia, Hypothyroidism, Psychiatric and Other (restless leg, lumbar spinal stoenosis)
Past Surgical History: Gynecological and Orthopedic
Social History
Tobacco: Non-Smoker
Alcohol: None
Drug: None
Family History
Family History: Other (daughter with Crohn's disease)
Allergies / Home Medications
Allergy/AdvReac Type Severity Reaction Status Date / Time
erythromycin base Allergy stomach Verified 11/16/23 13:52
cramps
gluten Allergy GI s/s Verified 11/16/23 13:52
Milk Containing Products Allergy GI s/s Verified 11/16/23 13:52
(Dairy)
amylase [From Zenpep] AdvReac Severe Verified 11/16/23 13:52
dehydration
gabapentin AdvReac Severe dry Verified 11/16/23 13:52
mouth
lipase [From Zenpep] AdvReac Severe Verified 11/16/23 13:52
dehydration
pregabalin [From Lyrica] AdvReac Severe dry Verified 11/16/23 13:52
mouth
protease [From Zenpep] AdvReac Severe Verified 11/16/23 13:52
dehydration
�Medication �Instructions �Recorded
levothyroxine 88 mcg tablet 100 mcg PO DAILY Thyroid 12/28/10
(Synthroid)
atorvastatin 10 mg tablet 20 mg PO DAILY High Cholesterol 10/30/20
bupropion HCl 150 mg 24 hr tablet, 150 mg PO DAILY Depression 10/30/20
extended release
montelukast 10 mg tablet 10 mg PO HS Lung/Breathing Issues 10/30/20
omeprazole 40 mg capsule,delayed 40 mg PO HS Gastrointestinal Issue 10/30/20
release
pramipexole 0.25 mg tablet 0.5 mg PO HS restless leg 10/30/20
multivitamin 1 tab PO DAILY Supplement 09/09/23
olopatadine 0.1 % eye drops 1 drp BOTH EYES HS Eye Condition 09/09/23
quetiapine 50 mg tablet (Seroquel) 100 mg PO HS depression/anxiety 09/09/23
alprazolam 1 mg tablet 1 mg PO HSPRN PRN anxiety #0 tabs 09/17/23
bisacodyl 5 mg tablet,delayed 15 mg PO DAILYPRN PRN constipation 05/07/24
release (Dulcolax (bisacodyl))
docusate sodium 100 mg capsule 100 mg PO BIDPRN PRN constipation 05/07/24
famotidine 40 mg tablet (Pepcid) 40 mg PO HS 05/07/24
fluticasone furoate 200 1 inh inhalation R DAILY 05/07/24
mcg-vilanterol 25 mcg/dose
inhalation powder (Breo Ellipta)
magnesium hydroxide 400 mg/5 mL 2,400 mg PO DAILYPRN PRN 05/07/24
oral suspension (Milk of Magnesia) constipation
mirtazapine 15 mg tablet 15 mg PO HS 05/07/24
omeprazole 20 mg tablet,delayed 20 mg PO DAILY 05/07/24
release
sennosides 8.6 mg tablet (Senna 17.2 mg PO DAILYPRN PRN 05/07/24
Laxative) constipation
sodium phosphates 19 gram-7 118 ml OH DAILYPRN PRN constipation 05/07/24
gram/118 mL enema (Fleet Enema)
Review of Systems
-
All other systems: A 12 pt ROS was Negative except as stated above in HPI
Vital Signs
Temp Pulse Resp BP Pulse Ox
98.3 F 108 18 139/86 99
05/07/24 15:42 05/07/24 15:42 05/07/24 15:42 05/07/24 15:42 05/07/24 15:42
Physical Exam
Exam
General: Well Developed
HEENT: Normocephalic
Respiratory: Clear
Cardiac: S1/S2
GI: Non Distended and Tender
Musculoskeletal: No Clubbing
Skin: Warm
Neuro: AO x 3
Psych: Calm
Results
WBC 16.1 10^3/uL (4.8-10.8) H 05/07/24 09:06
Hgb 15.7 g/dL (12.0-16.0) 05/07/24 09:06
Hct 47.8 % (37.0-47.0) H 05/07/24 09:06
MCV 85.2 fL (81.0-99.0) 05/07/24 09:06
Plt Count 490 10^3/uL (130-400) H 05/07/24 09:06
Absolute Neuts (auto) 12.2 10^3/uL (1.4-6.5) H 05/07/24 09:06
Sodium 142 mmol/L (135-145) 05/07/24 09:06
Potassium 4.2 mmol/L (3.5-5.1) 05/07/24 09:06
Chloride 101 mmol/L (98-107) 05/07/24 09:06
Carbon Dioxide 22 mmol/L (22-30) 05/07/24 09:06
BUN 12 mg/dl (7-17) 05/07/24 09:06
Creatinine 1.1 mg/dL (0.6-1.0) H 05/07/24 09:06
Calcium 10.3 mg/dl (8.4-10.2) H 05/07/24 09:06
Total Bilirubin 1.2 mg/dl (0.2-1.3) 05/07/24 09:06
AST 27 U/L (14-36) 05/07/24 09:06
ALT 32 U/L (0-35) 05/07/24 09:06
Alkaline Phosphatase 191 U/L (38-126) H 05/07/24 09:06
Lipase 71 U/L (23-300) 05/07/24 09:06
Diagnostic Image Results:
Prior GI Procedures:
EGD:
Colonoscopy:
Assessment / Plan
-
Ms Teague is a 63-year-old female presenting with constipation followed by diarrhea, nausea and vomiting, weakness found to have positive C. difficile. It is atypical to have constipation followed by diarrhea for C. difficile although the CT
findings of colitis and the leukocytosis support that this is actually C. difficile. She is having ongoing nausea and vomiting for the last month but she does have underlying gastroparesis. She has concerns about serotonin syndrome because her
daughter had this in the past with her psych meds. Unclear why patient is requiring such high doses of narcotics.
Recommendations:
- Continue vancomycin
- Continue mirtazipine started outpatient for n/v (only has taken for 2 days)
- I attempted to reach out to pharmacist regarding antiemetic that can not increase risk of serotonin syndrome unfortunately I think all do (also cannot take erythromycin due to stomach cramps). However reglan and zofran on their own should not
cause serotonin syndrome but can all with other meds increase the risk of it. Unable to reach pharmacist tonight will try again in AM (got voicemail).
Data Reviewed
-
Radiology: Report Reviewed by me
CT Scan: Report Reviewed by me
-
-
Thank you for consultation and allowing me to participate in the patient's care. Please call the personnel scheduler GI physician during the after hours with any questions or concerns.
[2024-05-07] MEDS: SYMBICORT 160/4.5 MCG INHALER 2 PUFF INH (18:15)
[2024-05-07] MEDS: SEROQUEL 100 MG PO (20:49)
[2024-05-07] MEDS: MIRAPEX 0.5 MG PO (20:49)
[2024-05-07] MEDS: PEPCID 20 MG PO (20:49)
[2024-05-07] MEDS: REMERON 15 MG PO (20:49)
[2024-05-07] MEDS: ZADITOR 1 DROP BOTH EYES (21:43)
[2024-05-07] MEDS: BENADRYL 25 MG IV (23:34)
--- NOTE | 2024-05-07 23:44 | PTCARENOTE ---
Pt throwing up for the second time this shift despite giving IM tigan at 20:42. Oral vanco due, but pt does not think she'll be able to keep it down. House provider notified and 25mg IV benadryl ordered and administered. Currently limited in
anti-emetics due to prolonged QTc. Will check in with pt again and try to give oral vanco.
[2024-05-08] MEDS: FIRVANQ PO ×2 (00:11→06:30)
--- NOTE | 2024-05-08 00:50 | PTCARENOTE ---
Pt declining oral vanco due to nausea, even after 25mg IV benadryl at 23:34. House provider notified.
[2024-05-08] MEDS: DILAUDID 1 MG IV ×3 (03:28→20:21)
[2024-05-08] MEDS: TIGAN 200 MG IM (03:28)
[2024-05-08] MEDS: D5/0.9% SODIUM CHLORIDE 1000 IV ×3 (05:22→17:23)
--- NOTE | 2024-05-08 06:30 | PTCARENOTE ---
Pt unable to take PO vanco as whenever she sips even water, she vomits.
[2024-05-08 07:00] VITALS: BP 128/69
[2024-05-08] MEDS: SYMBICORT 160/4.5 MCG INHALER 2 PUFF INH ×2 (07:48→17:57)
[2024-05-08 08:00] LABS: Hematocrit 32.7 % (37.0-47.0); Hemoglobin 10.9 g/dL (12.0-16.0); Mean Corp Hgb Conc. 33.3 g/dL (33.0-37.0); Mean Corpuscular Hgb 28.3 pg (27.0-31.0); Mean Corpuscular Volume 84.9 fL (81.0-99.0); Mean Platelet Volume 10.3 fL (7.4-10.4); Platelet Count 224 10^3/uL (130-400); Red Blood Cell Count 3.85 10^6/uL (4.20-5.40); Red Cell Dist. Width 14.5 % (11.5-14.5); White Blood Cell Count 6.7 10^3/uL (4.8-10.8)
[2024-05-08] MEDS: COMPAZINE 5 MG IV ×2 (08:15→15:31)
[2024-05-08 08:24] LABS: ALT (SGPT) 17 U/L (0-35); AST (SGOT) 20 U/L (14-36); Albumin 2.8 g/dl (3.5-5.0); Alkaline Phosphatase 94 U/L (38-126); Blood Urea Nitrogen 8 mg/dl (7-17); Calcium 8.1 mg/dl (8.4-10.2); Carbon Dioxide 24 mmol/L (22-30); Chloride 109 mmol/L (98-107); Estimated Creatinine Clearance 77 ml/min; Glucose 119 mg/dl (70-99); Sodium 140 mmol/L (135-145); Total Bilirubin 0.3 mg/dl (0.2-1.3); Total Protein 5.1 g/dl (6.3-8.2); eGFR > 60.00
[2024-05-08] MEDS: WELLBUTRIN XL (24 hour extended release) PO (08:43)
[2024-05-08] MEDS: COMPAZINE 10 MG IV (08:43)
--- NOTE | 2024-05-08 08:43 | W.PN.GI.CBS2 ---
Today's Communication / Plan
-
anti emetics, vanco
Assessment / Plan
-
Ms Teague is a 63-year-old female presenting with constipation followed by diarrhea, nausea and vomiting, weakness found to have positive C. difficile. It is atypical to have constipation followed by diarrhea for C. difficile although the CT
findings of colitis and the leukocytosis support that this is actually C. difficile (WBC today 05/08 improved). She is having ongoing nausea and vomiting for the last month but she does have underlying gastroparesis. She has concerns about
serotonin syndrome because her daughter had this in the past with her psych meds. Unclear why patient is requiring such high doses of narcotics.
Recommendations:
- Continue vancomycin
- Continue mirtazipine started outpatient for n/v (only has taken for 2 days) - may eventually benefit from increase for buttermaker control
- All antiemetics in combo with other meds have a risk of serotonin syndrome. Pt got tigan no help; zofran no help in past. Getting compazine now. If compazine helps will do that prn if not will switch to phenergan as has worked in past for her.
With underlying gastroparesis, reglan may help as well.
Subjective
Subjective
Date of Service: May 08, 2024
no BM since yesterday
feels constipated
ongoing nausea
c/o chills
Objective
Data Reviewed
Laboratory Data:
Laboratory Results
05/08/24 07:16
05/08/24 07:16
Laboratory Results
Total Bilirubin 0.3 mg/dl (0.2-1.3) 05/08/24 07:16
AST 20 U/L (14-36) 05/08/24 07:16
ALT 17 U/L (0-35) 05/08/24 07:16
Alkaline Phosphatase 94 U/L (38-126) 05/08/24 07:16
Lipase 71 U/L (23-300) 05/07/24 09:06
Vital Signs and I&O:
Vital Signs
Temp Pulse Resp BP Pulse Ox
98.2 F 101 16 128/69 99
05/08/24 07:00 05/08/24 07:50 05/08/24 07:50 05/08/24 07:00 05/08/24 07:50
I&O
05/07/24 05/08/24 05/09/24
06:59 06:59 06:59
Intake Total 480 / 480 1800 / 1800
Balance 480 / 480 1800 / 1800
Physical Exam
Physical Exam
HEENT: Anicteric
Cardiology: Normal Sinus Rhythm
Pulmonary: Clear
GI: Non Distended and Non Tender
--- NOTE | 2024-05-08 10:16 | CM ---
CM following re: discharge planning.
Reviewed pt's chart, met with pt.
Pt is a 63 year old female, admitted with primary dx of constipation followed by diarrhea, nausea and vomiting.
Pt lives with 2SH, 1 step to enter. 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 Pt expressed her desire to return back home at discharge with family support.
PCP: Sherley Celestin
Pharmacy: [facility]
D/C plan: home with anticipated no needs. Spouse to transport at discharge.
CM will follow with discharge plan updates as hospitalization progresses
[2024-05-08] MEDS: PROTONIX IV 40 MG IV ×2 (10:40→20:21)
[2024-05-08] MEDS: NSS (PRESERVATIVE FREE) 10 ML IV ×2 (10:41→20:21)
--- NOTE | 2024-05-08 11:41 | W.PN.HOSP.TC ---
Today's Communication/Plan
-
c/w oral vancomycin
Pt requested GERD treatment
Use MiraLAX if constipation
ok to use Zofran and Compazine as needed
Use IV Ativan for nausea, restless leg, anxiety for now
Reduce IVF rate to 75 cc/ hour.
Probiotic at night
Advance to full liquid for dinner
Likely discharge in am
Assessment / Plan
Assessment / Plan
Physical Exam
General: Pain; No Respiratory Distress
HEENT: Atraumatic
Respiratory: No Wheezes
Cardiac: No Tachycardia
GI: Soft, Non Distended and Tender
Genito-urinary: No Zuniga
Musculoskeletal: No Clubbing and No Cyanosis
Skin: Warm and Dry; No Jaundice
Neuro: AO x 3 and Nonfocal/grossly intact
Psych: Calm and Intact Judgment/Insight
63 female presented with acute diarrhea with abdominal pain due to C diff colitis
# Acute C Diff Colitis
CT suggestive of proctocolitis
No diarrhea over night
Still with nausea that is bothering her more than pain
WBC normalized
No fevers
Abdomen is soft
c/w Oral vancomycin
Change nausea medicine to Zofran and Compazine as needed. Holding Pramipexole for now
Consult GI & ID, help appreciated.
# Acute urinary retention
Placed Zuniga after 800 cc retention
Will do voiding trial tomorrow
# Urine positive for Streptococcus
c/w colonization, monitor for now
Will avoid other antibiotics while active C Diff since pt/ WBC came down.
# GERD, patient has history of GI problems. She follows with GI office.
Patient started to have heartburn, will do IV PPI
# Mild BRODY due to dehydration
Resolved with IVF
CT showed no hydronephrosis
# Hx of gastroparesis
# Hypercalcemia due to dehydration, resolved
# DVT prophylaxis, Will do SQ heparin, no bloody diarrhea
# History fo anxiety/ Migraine
Mood is pleasant, continue with home regimen.
# Restless leg syndrome
Hold Pramipexole to be able to use Compazine for nausea. Given IV Ativan which can help for now.
# Hypothyroidism
No changers intended.
Total time spent to see the patient, examine the patient, review data and lab results, discuss treatment plan with the patient, , cancer program consultant, nursing staff around 63 minutes
Anticipated Discharge: Within 24 hours
Subjective/Interval History
-
Date of Service: May 08, 2024
She had abd discomfort earlier with urinary retention
Objective Data
-
Labs:
Laboratory Results
05/08/24
07:16
WBC 6.7
Hgb 10.9 L D
Hct 32.7 L
Plt Count 224 D
Sodium 140
Potassium 4.0
Chloride 109 H
Carbon Dioxide 24
BUN 8
Creatinine 0.7
Glucose 119 H
Calcium 8.1 L D
Total Bilirubin 0.3
AST 20
ALT 17
Alkaline Phosphatase 94
Vital Signs:
Vital Signs
Temp Pulse Resp BP Pulse Ox
98.2 F 101 16 128/69 99
05/08/24 07:00 05/08/24 07:50 05/08/24 07:50 05/08/24 07:00 05/08/24 07:50
I&O
05/07/24 05/08/24 05/09/24
06:59 06:59 06:59
Intake Total 480 / 480 1800 / 1800
Balance 480 / 480 1800 / 1800
--- NOTE | 2024-05-08 12:04 | CON.ID ---
Consultation
-
Date/Time Consultation Requested: 05/07/24 15:51
Date/Time Consultation Performed: 05/08/23 12:04
Requesting Provider: Dr Marlow
Performing Provider: Dr Matute
Reason for Consultation: C diff colitis
Chief Complaint / Past History
Chief Complaint
Diarrhea with abdominal pain for one day duration
History of Present Illness
Ms Teague is a 63 year old feale with history of chronic constipation/vomiting suspicion for gastroparesis, who presented her for abdominal pain, cramping and liquid stools. Symptom first began with several days of constipation, she took
laxatives, and then developed nausea, vomiting, liquid stool, abdominal pain and cramping. No recent antibiotics. Daughter with known Crohns disease.
Since arrival here she has been afebrile, bp stable, wbc initially 16 today 6.7, hgb initially 15 today 10.9, plt 224, L shift is noted, cr initially 1.1 today 0.7, ua no pyuria, 05/07 CT a/p: proctocolitis, urine culture 30K strep, c diff ag/toxin
positive. on oral vancomycin.
Past History
Additional Past Medical History:
Depression, restless leg syndrome, history of nausea and vomiting, hyperlipidemia, hypothyroidism, GERD, dermatitis, lumbar spinal stenosis with radiculopathy
Additional Past Surgical History:
lumbar laminectomy
Allergy History:
amylase [From Zenpep] Allergy (Verified 05/07/24 23:30)
Severe dehydration-N/V
erythromycin base Allergy (Verified 05/07/24 23:30)
stomach cramps
gabapentin Allergy (Verified 05/07/24 23:30)
Severe dry mouth
gluten Allergy (Verified 11/16/23 13:52)
GI s/s
lipase [From Zenpep] Allergy (Verified 05/07/24 23:30)
Severe dehydration
Milk Containing Products (Dairy) Allergy (Verified 11/16/23 13:52)
GI s/s
pregabalin [From Lyrica] Allergy (Verified 05/07/24 23:30)
Severe dry mouth
protease [From Zenpep] Allergy (Verified 05/07/24 23:30)
Severe dehydration
Medications Reviewed: Yes
Current Antibiotics:
oral vancomycin
Social History
Tobacco: Non-Smoker
Alcohol: None
Drug: None
Family History
Family History: Other (daughter - Crohns disease)
Review of Systems
Review of Systems
General: Negative Fever or Chills
All systems: All other systems were reviewed and were negative
Vital Signs
Temp Pulse Resp BP Pulse Ox
98.2 F 101 16 128/69 99
05/08/24 07:00 05/08/24 07:50 05/08/24 07:50 05/08/24 07:00 05/08/24 07:50
Physical Exam
Physical Exam
Constitutional: No Acute Distress
Cardiovascular: Regular Rate
Pulmonary: Symmetric, Rhonchi and Non Labored
Gastrointestinal: Soft, Non Tender, Non Distended and Normal Bowel Sounds
Skin: Warm and Dry; Negative Rash or Jaundice
Lab / Diagnostic Study Results
05/08/24 07:16
05/08/24 07:16
Abs Immat Gran (auto) 0.1 10^3/uL (0-0.05) H 05/07/24 09:06
Absolute Neuts (auto) 12.2 10^3/uL (1.4-6.5) H 05/07/24 09:06
Absolute Lymphs (auto) 2.0 10^3/uL (1.2-3.4) 05/07/24 09:06
Absolute Monos (auto) 1.2 10^3/uL (0.1-0.6) H 05/07/24 09:06
Absolute Basos (auto) 0.1 10^3/uL (0-0.2) 05/07/24 09:06
Immature Gran % 0.5 % (0-0.5) 05/07/24 09:06
Neutrophils % 76.1 % (42.2-75.2) H 05/07/24 09:06
Lymphocytes % 12.3 % (20.5-51.1) L 05/07/24 09:06
Monocytes % 7.3 % (1.7-9.3) 05/07/24 09:06
Eosinophils % 3.2 % (0-6) 05/07/24 09:06
Basophils % 0.6 % (0-2) 05/07/24 09:06
Ur Squamous Epith Cells 16-20 /LPF (Few) 05/07/24 09:48
Microbiology Results
Micro:
05/07/24 09:48 Urine Culture - Final
Urine Streptococcus species
05/07/24 09:48 Salmonella/Shigella Culture - Preliminary
Feces/Stool Culture in Progress
Campylobacter Culture - Preliminary
Culture in Progress
Shiga Toxin Test - Pending
05/07/24 09:48 C. difficile GDH Antigen & Toxins - Final
Feces/Stool Toxigenic C.difficile Positive
Assessment / Plan
Initial episode of C difficile - mild
- recommend oral vancomycin 125 mg PO x 10 days
- oral probiotics and/or probiotic foods x14 days; fiber rich foods also encouraged moving forward
- agree with stopping PPI
- follow up with PCP
urine culture with strep is a very low colony count and doesnt require treatment
[2024-05-08] MEDS: FIRVANQ 125 MG PO ×2 (12:11→16:58)
[2024-05-08 15:00] VITALS: BP 119/70
--- NOTE | 2024-05-08 17:03 | PTCARENOTE ---
This am pt was very anxious, restless RR 36-46 and in distress. She kept saying she had to void. we would assist her to Bathroom and she was unable to void x2. Pt was bladder scanned for > 750 X2. MD aware, Zuniga catheter ordered and placed. 14
kenyan immediatly drained clear straw urine 800ml. PT had immediate relief and her anxiety and restlessness resolved within five minutes. During that time MD ordered IV ativan however it was not needed and not given. did order IV protonix and
this helped pt.
[2024-05-08] MEDS: ZOFRAN 4 MG IV (18:25)
[2024-05-08] MEDS: HEPARIN 5000 UNITS SC (20:22)
[2024-05-08] MEDS: ZADITOR 1 DROP BOTH EYES (21:56)
[2024-05-08] MEDS: REMERON 15 MG PO (21:56)
[2024-05-08] MEDS: VISBIOME 1 CAP PO (21:56)
[2024-05-08] MEDS: SEROQUEL 100 MG PO (21:56)
[2024-05-08] MEDS: ATIVAN 0.5 MG IV (21:56)
[2024-05-08] MEDS: PEPCID 20 MG PO (21:56)
[2024-05-08 23:00] VITALS: BP 110/72
[2024-05-09] MEDS: FIRVANQ 125 MG PO ×3 (00:37→13:06)
[2024-05-09] MEDS: ATIVAN 0.25 MG IV (02:06)
[2024-05-09] MEDS: NSS (PRESERVATIVE FREE) 0.25 ML IV (02:08)
[2024-05-09 07:53] LABS: % Basophils 0.8 % (0-2); % Eosinophils 6.2 % (0-6); % Immature Granulocytes 0.5 % (0-0.5); % Lymphocytes 14.6 % (20.5-51.1); % Neutrophils 70.9 % (42.2-75.2); Absolute Basophils 0.1 10^3/uL (0-0.2); Absolute Eosinophils 0.4 10^3/uL (0-0.7); Absolute Monocytes 0.5 10^3/uL (0.1-0.6); Absolute Neutrophils 4.7 10^3/uL (1.4-6.5); Hematocrit 36.6 % (37.0-47.0); Hemoglobin 12.2 g/dL (12.0-16.0); Mean Corp Hgb Conc. 33.3 g/dL (33.0-37.0); Mean Corpuscular Hgb 27.9 pg (27.0-31.0); Mean Corpuscular Volume 83.8 fL (81.0-99.0); Mean Platelet Volume 10.1 fL (7.4-10.4); Nucleated Red Blood Cells % 0 %; Platelet Count 260 10^3/uL (130-400); Red Blood Cell Count 4.37 10^6/uL (4.20-5.40); White Blood Cell Count 6.6 10^3/uL (4.8-10.8)
[2024-05-09] MEDS: SYMBICORT 160/4.5 MCG INHALER 2 PUFF INH (07:53)
[2024-05-09 07:55] VITALS: BP 141/78
[2024-05-09] MEDS: NSS (PRESERVATIVE FREE) 10 ML IV (08:00)
[2024-05-09] MEDS: PROTONIX IV 40 MG IV (08:00)
[2024-05-09] MEDS: ZOFRAN 4 MG IV (08:05)
[2024-05-09] MEDS: WELLBUTRIN XL (24 hour extended release) 150 MG PO (09:30)
[2024-05-09] MEDS: D5/0.9% SODIUM CHLORIDE 1000 IV (09:30)
[2024-05-09] MEDS: HEPARIN 5000 UNITS SC (09:31)
[2024-05-09 10:25] LABS: Blood Urea Nitrogen 2 mg/dl (7-17); Calcium 8.7 mg/dl (8.4-10.2); Carbon Dioxide 28 mmol/L (22-30); Chloride 107 mmol/L (98-107); Estimated Creatinine Clearance 77 ml/min; Glucose 106 mg/dl (70-99); Potassium 3.9 mmol/L (3.5-5.1); Sodium 142 mmol/L (135-145); eGFR > 60.00
--- NOTE | 2024-05-09 12:01 | PTCARENOTE ---
Pt nauseated this am zofran given. PT did eat three bites of an egg and tolerated this. Will await lunch.
--- NOTE | 2024-05-09 12:10 | W.PN.GI.CBS2 ---
Today's Communication / Plan
-
vanco for c diff, remeron for gastoparesis, gastroparesis diet, gi signing off
Assessment / Plan
-
Ms Teague is a 63-year-old female presenting with constipation followed by diarrhea, nausea and vomiting, weakness found to have positive C. difficile. It is atypical to have constipation followed by diarrhea for C. difficile although the CT
findings of colitis and the leukocytosis support that this is actually C. difficile. She had nausea and vomiting for the last month but she does have underlying gastroparesis likely gastroparesis flare in setting of infection.
Recommendations:
- Continue vancomycin, ID following now for CDI
- Continue mirtazipine started outpatient for n/v (only has taken for 2 days) - may eventually benefit from increase for long-term control told pt to call our office if needs increase in 1-2 weeks
- Changed diet to gastroparesis diet - low residue low fat small frequent meals
- Follows with Dr. Ibarra outpatient and has appt with Dr. Bourgeois at [place] in Jul
GI will sign off pls call with ?s
Subjective
Subjective
Date of Service: May 09, 2024
feeling better
tolerated diet this am
2 muddy bm this am
Objective
Data Reviewed
Laboratory Data:
Laboratory Results
05/09/24 07:31
05/09/24 09:35
Laboratory Results
Total Bilirubin 0.3 mg/dl (0.2-1.3) 05/08/24 07:16
AST 20 U/L (14-36) 05/08/24 07:16
ALT 17 U/L (0-35) 05/08/24 07:16
Alkaline Phosphatase 94 U/L (38-126) 05/08/24 07:16
Lipase 71 U/L (23-300) 05/07/24 09:06
Vital Signs and I&O:
Vital Signs
Temp Pulse Resp BP Pulse Ox
97.8 F 101 16 141/78 100
05/09/24 07:55 05/09/24 07:55 05/09/24 07:55 05/09/24 07:55 05/09/24 07:55
I&O
05/08/24 05/09/24 05/10/24
06:59 06:59 06:59
Intake Total 480 / 480 4950 / 4950
Output Total 1550 / 1550 350 / 350
Balance 480 / 480 3400 / 3400 -350 / -350
Physical Exam
Physical Exam
HEENT: Anicteric
Cardiology: Normal Sinus Rhythm
Pulmonary: Clear
GI: Non Distended and Non Tender
--- NOTE | 2024-05-09 12:41 | W.PN.ID1 ---
Date of Service
Date of Service: May 09, 2024
Today's Communication
- recommend oral vancomycin 125 mg PO x 10 days
Assessment / Plan
Initial episode of C difficile - mild
- recommend oral vancomycin 125 mg PO x 10 days
- oral probiotics and/or probiotic foods x14 days; final diet decisions per GI
- follow up with PCP
urine culture with strep is a very low colony count and doesnt require treatment
Chief Complaint
-: C-diff
Subjective / Review of Systems
afebrile
bp stable
stools remain liquid, however only 1 episdoe
Vital Signs / Physical Exam
Vital Signs
Vital Signs
Temp Pulse Resp BP Pulse Ox
97.8 F 101 16 141/78 100
05/09/24 07:55 05/09/24 07:55 05/09/24 07:55 05/09/24 07:55 05/09/24 07:55
Physical Exam
Constitutional: No Acute Distress
Cardiovascular: Regular Rate and S1/S2; Negative Murmur or Rub
Pulmonary: Clear and Symmetric; Negative Wheezes or Rales
Gastrointestinal: Soft, Non Tender, Non Distended and Normal Bowel Sounds
Skin: Warm and Dry; Negative Rash or Jaundice
Objective Data
Lab Data
Lab Results
05/09/24 07:31
05/09/24 09:35
Estimated Creat Clear 77 ml/min 05/09/24 09:35
Total Bilirubin 0.3 mg/dl (0.2-1.3) 05/08/24 07:16
AST 20 U/L (14-36) 05/08/24 07:16
ALT 17 U/L (0-35) 05/08/24 07:16
Alkaline Phosphatase 94 U/L (38-126) 05/08/24 07:16
Most recent labs reviewed.
Micro Results:
05/07/24 09:48 Salmonella/Shigella Culture - Final
Feces/Stool No Salmonella, Shigella, Aeromonas or Plesiomonas species
isolated.
Campylobacter Culture - Final
No Campylobacter species isolated.
Shiga Toxin Test - Pending
05/07/24 09:48 Urine Culture - Final
Urine Streptococcus species
05/07/24 09:48 C. difficile GDH Antigen & Toxins - Final
Feces/Stool Toxigenic C.difficile Positive
Care Review
Plan reviewed with: Physician (Dr Gabriel - ppi)
--- NOTE | 2024-05-09 13:09 | W.PN.HOSP.TC ---
Today's Communication/Plan
-
Discharge home
Assessment / Plan
Assessment / Plan
Physical Exam
General: Pain; No Respiratory Distress
HEENT: Atraumatic
Respiratory: No Wheezes
Cardiac: No Tachycardia
GI: Soft, Non Distended and not Tender
Genito-urinary: No Zuniga
Musculoskeletal: No Clubbing and No Cyanosis
Skin: Warm and Dry; No Jaundice
Neuro: AO x 3 and Nonfocal/grossly intact
Psych: Calm and Intact Judgment/Insight
63 female presented with acute diarrhea with abdominal pain due to C diff colitis
# Acute C Diff Colitis
CT suggestive of proctocolitis
Much less diarrhea ( one time over night). No abdominal pain
Less nausea, tolerated Compazine and Zofran
WBC normalized
No fevers
Abdomen is soft
c/w Oral vancomycin for 10 days.
Consult GI & ID, help appreciated.
# Acute urinary retention
Resolved, dc Zuniga
# Urine positive for Streptococcus
c/w colonization, monitor for now
Will avoid other antibiotics while active C Diff since pt/ WBC came down.
# GERD, patient has history of GI problems. She follows with GI office.
Patient started to have heartburn, will do IV PPI
# Mild BRODY due to dehydration
Resolved with IVF
CT showed no hydronephrosis
# Hx of gastroparesis
# Hypercalcemia due to dehydration, resolved
# DVT prophylaxis, SQ heparin, no bloody diarrhea
# History fo anxiety/ Migraine
Mood is pleasant, continue with home regimen.
# Restless leg syndrome
Held Pramipexole to be able to use Compazine for nausea. Given IV Ativan which can help.
# Hypothyroidism
No changers intended.
Total discharge time spent to see the patient, examine the patient, review data and lab results, discuss discharge plan with the patient, nursing staff around 67 minutes
Anticipated Discharge: Today
Subjective/Interval History
-
Date of Service: May 09, 2024
She is feeling better
No abd pain
Less nausea
Objective Data
-
Labs:
Laboratory Results
05/09/24 05/09/24
07:31 09:35
WBC 6.6
Hgb 12.2
Hct 36.6 L
Plt Count 260
Sodium Cancelled 142
Potassium Cancelled 3.9
Chloride Cancelled 107
Carbon Dioxide Cancelled 28
BUN Cancelled 2 L
Creatinine Cancelled 0.7
Glucose Cancelled 106 H
Calcium Cancelled 8.7
Vital Signs:
Vital Signs
Temp Pulse Resp BP Pulse Ox
97.8 F 101 16 141/78 100
05/09/24 07:55 05/09/24 07:55 05/09/24 07:55 05/09/24 07:55 05/09/24 07:55
I&O
05/08/24 05/09/24 05/10/24
06:59 06:59 06:59
Intake Total 480 / 480 4950 / 4950
Output Total 1550 / 1550 350 / 350
Balance 480 / 480 3400 / 3400 -350 / -350
--- NOTE | 2024-05-09 13:52 | W.DCSUMMARY ---
Discharge Summary
Discharge Data
Date of Admission: 05/07/24
Date of Discharge: 05/09/24
-
Pending Results: No
Hospital Course
63 years old female presented with abdominal pain and diarrhea for 1 day duration. She has history of GERD and constipation. Patient was diagnosed with acute C- difficile colitis. Patient did not have history of recent antibiotic use or sick
contact. CAT scan of the abdomen and pelvis showed proctocolitis. Patient complained of significant nausea. Patient was given IV Zofran and intravenous Compazine. Pramipexole was held to avoid drug interaction. She was given IV Protonix which
helped with nausea. She was evaluated by gastroenterology and ID doctors. Recommended to continue treatment of infection with oral vancomycin. Patient was noted to have acute urinary retention and Zuniga catheter was placed for 1 day. Zuniga
catheter was removed and patient was able to void. Urine culture with strep, was a very low colony count and did not require treatment, WBC count normalized. Nausea started to improve and patient tolerated diet. She did not have fever. Abdominal
pain resolved. She was given probiotics. Patient and her were counseled regarding precautions to avoid transmission of infection. She remained hemodynamically stable and was discharged home in stable condition.
Discharge Plan
-
Patient Disposition: Home (Routine Discharge)
Discharge Diagnosis/Procedures: C -difficile colitis.
You were seen by GI and ID doctors.
Diet: As tolerated
Referrals:
Sherley Vazquez PA-C [Family Provider] -
Elisabet Gabriel MD [Active] - in two to four weeks
Prescriptions:
New
vancomycin 125 mg capsule
125 mg PO QID Qty: 40 0RF
Lactobac 2-Bifido 1-S. therm 112.5 billion cell capsule
1 cap PO DAILY Qty: 20 0RF
Continued
levothyroxine [Synthroid] 88 MCG tablet
100 mcg PO DAILY
atorvastatin 10 MG tablet
20 mg PO DAILY
omeprazole 40 MG capsule,delayed release(DR/EC)
40 mg PO HS
pramipexole 0.25 MG tablet
0.5 mg PO HS
montelukast 10 MG tablet
10 mg PO HS
bupropion HCl 150 MG tablet extended release 24 hr
150 mg PO DAILY
multivitamin Tablet
1 tab PO DAILY
olopatadine 0.1 % Drops
1 drp BOTH EYES HS
quetiapine [Seroquel] 50 mg Tablet
100 mg PO HS
alprazolam 1 MG tablet
1 mg PO HSPRN PRN (Reason: anxiety) Qty: 0 0RF
magnesium hydroxide [Milk of Magnesia] 400 mg/5 mL Suspension
2,400 mg PO DAILYPRN PRN (Reason: constipation)
Fleet Enema 19-7 gram/118 mL Enema
118 ml MT DAILYPRN PRN (Reason: constipation)
bisacodyl [Dulcolax (bisacodyl)] 5 mg Tablet,Delayed Release (Dr/Ec)
15 mg PO DAILYPRN PRN (Reason: constipation)
omeprazole 20 mg Tablet,Delayed Release (Dr/Ec)
20 mg PO DAILY
fluticasone furoate-vilanterol [Breo Ellipta] 200-25 mcg/dose Blister With Device
1 inh INHALATION R DAILY
sennosides [Senna Laxative] 8.6 mg tablet
17.2 mg PO DAILYPRN PRN (Reason: constipation)
docusate sodium 100 mg capsule
100 mg PO BIDPRN PRN (Reason: constipation)
mirtazapine 15 mg Tablet
15 mg PO HS
famotidine [Pepcid] 40 mg Tablet
40 mg PO HS
Discharge Orders:
Discharge Patient (As Directed); Ordered 05/09/24
Ordered By: Coreen Marlow
Discharge Date and Time
Print Language: ALB[place]
--- NOTE | 2024-05-09 14:07 | CM ---
CM following re: discharge planning.
Discharge order noted.
Pt is aware and she stated her will transport home.
D/C plan: home no needs. to transport.
[2024-05-09] MEDS: AFLURIA (36 mos+) 2024-2025 FORMULA 0.5 ML IM (14:33)
[2024-05-09 15:00] VITALS: BP 141/77
--- NOTE | 2024-05-09 16:01 | PTCARENOTE ---
PT voided 350 ml clear yellow urine without any issues. IV removed, Influenza vaccine given pt received Dc instructions and verbalized an understanding. PT had vitals prior to leaving. PT wheeled down to front and picked up
== END 2024-05-09 15:45 | disposition home or self-care (01) | DRG 372 ==
LOC: 3 WEST ACU 14:51
PROVIDERS: Nurse Practitioner; ADMITTING PHYSICIAN Internal Medicine; CONSULT PHYSICIAN Internal Medicine Gastroenterology; EMERGENCY PHYSICIAN Emergency Medicine; FAMILY PHYSICIAN Physician Assistant Medical; OTHER PHYSICIAN Student in an Organized Health Care Education/Training Program
DX: A04.72 Enterocolitis due to Clostridium difficile, not specified as recurrent (principal); N17.9 Acute kidney failure, unspecified; K21.9 Gastro-esophageal reflux disease without esophagitis; E86.0 Dehydration; G25.81 Restless legs syndrome; E03.9 Hypothyroidism, unspecified; E83.52 Hypercalcemia
CPT/HCPCS: 74177; 80048; 80053; 81003; 81015; 83690; 85025; 85027; 87045; 87046; 87086; 87324; 87427; 87449; 90686; 93005; 94640; 96361; 96372; 96374; 96375; 96376; 99285; G0008; Q9967

== ENCOUNTER → 2024-12-17 13:42 | Outpatient (REF) | payer OTHER, SELFPAY | LOC: HWRAD 13:42 | PROVIDERS: ATTENDING PHYSICIAN Internal Medicine; FAMILY PHYSICIAN Physician Assistant Medical | DX: R91.8 Other nonspecific abnormal finding of lung field (principal) | CPT/HCPCS: 71250 ==

== ENCOUNTER → 2025-04-25 10:46 | Outpatient (REF) | payer OTHER, SELFPAY | LOC: RAD 10:46 | PROVIDERS: ATTENDING PHYSICIAN Internal Medicine Gastroenterology; FAMILY PHYSICIAN Physician Assistant Medical; REFERRING PHYSICIAN Internal Medicine | DX: R13.10 Dysphagia, unspecified (principal) | CPT/HCPCS: 74210 ==

== ENCOUNTER → 2025-05-17 10:16 | Outpatient (REF) | payer OTHER, SELFPAY | LOC: RAD 10:16 | PROVIDERS: ATTENDING PHYSICIAN Internal Medicine Gastroenterology; FAMILY PHYSICIAN Physician Assistant Medical; OTHER PHYSICIAN Internal Medicine | DX: R19.7 Diarrhea, unspecified (principal) | CPT/HCPCS: 74246; 74248 ==